=== PATIENT | female | born 1945 | race Caucasian/White ===

== ENCOUNTER 2018-10-01 21:40 | Inpatient (IN) | payer MEDICARE ==
[2018-10-01] MEDS ORDERED: Prevnar 13-Val Conj/PF 0.5 ML SYRINGE IM ONE (22:45)
[2018-10-01] MEDS ORDERED: Dextrose 5% in Water 1,000 ML IV PRN (23:28)
[2018-10-01] MEDS ORDERED: Dextrose 50% Abboject 50 ML SYRINGE IVP PRN (23:28)
[2018-10-01] MEDS ORDERED: HumaLOG 300 UNITS/3 ML VIAL SC PRN (23:28)
[2018-10-02] MEDS: traMADol HCl 50 MG TAB PO PRN ×3 (00:04→18:41)
[2018-10-02] MEDS: Melatonin 3 MG TAB PO PRN ×2 (00:04→21:53)
[2018-10-02] MEDS: Acetaminophen 500 MG TAB PO PRN ×2 (00:05→10:28)
[2018-10-02 05:15] LABS: #Basophils 0.1 thou/uL (0.0-0.2); #Eosinphils 0.2 thou/uL (0.0-0.7); #Monocytes 0.7 thou/uL (0.11-0.59); %Basophils 0.7 % (0.0-1.0); %Lymphocytes 12.5 % (21.0-51.0); %Monocytes 8.9 % (0.0-10.0); %Neutrophils 75.9 % (42.0-75.0); Hemoglobin 7.2 g/dL (12.0-16.0); Mean Corpuscular HGB CONC 31.8 g/dL (32.0-36.0); Mean Corpuscular Hemoglobin 27.9 pg (27.0-31.0); Mean Corpuscular Volume 87.7 fL (78.0-98.0); Mean Platelet Volume 5.6 fL (7.4-10.4); Platelet Count 618 thou/uL (130-400); RBC Distribution Width 13.8 % (11.5-14.5); Red Blood Cell (RBC) Count 2.56 mill/uL (4.20-5.40); White Blood Cell (WBC) Count 7.9 thou/uL (4.8-10.8)
[2018-10-02 05:36] LABS: ALT (SGPT) 15 U/L (8-55); AST (SGOT) 16 U/L (5-34); Albumin 2.8 g/dL (3.4-4.8); Alkaline Phosphatase 114 U/L (40-150); Anion Gap 12 mmol/L (10-20); BUN (Urea Nitrogen) 5 mg/dL (9.8-20.1); Bilirubin, Total 0.3 mg/dL (0.2-1.2); Calc. Creatinine Clearance 99 mL/min (70-130); Calcium 8.4 mg/dL (7.8-10.44); Carbon Dioxide 27 mmol/L (23-31); Chloride 102 mmol/L (98-107); Estimated GFR-MDRD Greater than 90; Globulin 2.5 g/dL (2.4-3.5); Glucose 131 mg/dL (80-115); Potassium 3.6 mmol/L (3.5-5.1); Protein, Total 5.3 g/dL (6.0-8.3); Sodium 137 mmol/L (136-145)
[2018-10-02] MEDS: Levothyroxine Sodium 75 MCG TAB PO SCH (05:56)
[2018-10-02] MEDS: metFORMIN 500 MG TAB PO SCH ×2 (09:01→16:57)
[2018-10-02] MEDS: Ramipril 5 MG CAP PO SCH (09:02)
[2018-10-02] MEDS: Multivitamin W/ Minerals 1 TAB PO SCH (09:02)
[2018-10-02] MEDS: Aspirin 81 mg Enteric Coated Tablet PO SCH (09:02)
[2018-10-02] MEDS: Potassium Citrate 10 MEQ TAB PO SCH (09:02)
[2018-10-02] MEDS: DULoxetine 30 MG CAP PO SCH (09:02)
[2018-10-02] MEDS: Senokot S 8.6-50 MG TAB PO SCH ×2 (09:03→21:55)
[2018-10-02] MEDS: Saccharomyces boulardii 250 MG CAP PO SCH ×2 (09:03→21:48)
[2018-10-02] MEDS ORDERED: Dextrose 50% Abboject 50 ML SYRINGE IVP PRN (12:19)
[2018-10-02] MEDS ORDERED: HumaLOG 300 UNITS/3 ML VIAL SC PRN (12:19)
[2018-10-02] MEDS ORDERED: Dextrose 5% in Water 1,000 ML IV PRN (12:19)
--- NOTE | 2018-10-02 14:08 | HP ---
BRIEF HISTORY: This is a very pleasant 72-year-old female, who recently underwent a colonoscopy by Dr. Beckham with installation of donor fecal material for recurrent Clostridium difficile infection. Apparently, she had a significant stricture at the rectosigmoid junction, where he had difficulty traversing it, but eventually was able to do it. He instilled 250 to 50 mL of donor stool. She did have significant amount of retained stool, which made visualizing poor. Unfortunately, she developed significant abdominal distention and mottling and had to be intubated and was noted to have a perforated bowel. Dr. Bustamante did laparotomy, colon resection, and colostomy. He did left segment ileal resection with anastomosis, resection of the left colon, mobilization of the splenic flexure, Haven procedure, right colectomy without anastomosis, open abdomen ABThera placement, and left subclavian central line placement. She has been improving gradually. She is off her antibiotics. She was felt to be significantly deconditioned and was felt to be a candidate for inpatient rehabilitation and transferred here. No further episodes of Clostridium difficile. Antigen and toxin have been negative. Currently, the patient is sitting up at the side of her bed and eating her lunch. She does have a wound VAC placed. She still has a poor appetite. She refuses any protein supplement or Ensure. She stated that she will eat ice cream. She does not want Dave. Her spouse is in the room. She also after discussing with the spouse wants to be a full code. No fever or chills. No nausea or vomiting. PAST MEDICAL HISTORY: 1. Diabetes mellitus, type 2. 2. Hypothyroidism. 3. Hypertension. 4. Dyslipidemia. 5. History of recurrent Clostridium difficile. 6. Anxiety and depression. 7. Diverticulosis. 8. Poor p.o. intake for the last few years and has had a 40-pound weight loss per spouse. PAST SURGICAL HISTORY: 1. Two lumbar spine surgeries. 2. Partial thyroidectomy. 3. Hysterectomy. 4. Appendectomy. 5. History of past colonoscopy. PSYCHOSOCIAL HISTORY: for 52 years this week. Denies any tobacco, alcohol, or recreational drug abuse. FAMILY HISTORY: Noncontributory to current admission. ALLERGIES: MEPERIDINE AND CHLORPROMAZINE. MEDICATIONS: She has been transferred here on the following medications: 1. Tylenol 1 g q.6 p.r.n. 2. Norvasc 10 mg daily. 3. Ecotrin 81 mg daily. 4. Lipitor 20 mg daily. 5. Cymbalta 30 mg daily. 6. Lovenox 40 mg subcu daily. 7. Neurontin 100 mg at bedtime. 8. Ibuprofen 600 mg q.6 p.r.n. 9. Sliding scale coverage with insulin. 10. Synthroid 75 mcg in the morning. 11. Melatonin 3 mg at bedtime. 12. Glucophage 500 mg b.i.d. 13. Toprol-XL 25 mg at bedtime. 14. Protonix 40 mg daily. 15. Citrucel daily as needed. 16. Potassium citrate 20 mEq daily. 17. Altace 10 mg daily. 18. Florastor 250 mg b.i.d. 19. Tramadol 50 mg q.6 p.r.n. 20. Senokot-S one tablet b.i.d. REVIEW OF SYSTEMS: CARDIOVASCULAR SYSTEM: Denies any chest pain, shortness of breath, palpitations, PND, orthopnea, or pedal edema. RESPIRATORY SYSTEM: Denies any chronic cough, expectoration, or pleuritic type chest pain. GASTROINTESTINAL SYSTEM: Still with poor appetite, but denies any nausea, vomiting, diarrhea, constipation, hematemesis, melena, or hematochezia. GENITOURINARY SYSTEM: Denies any frequency, urgency, dysuria, or hematuria. CENTRAL NERVOUS SYSTEM: Denies any focal numbness, weakness, or fainting spells. HEENT: No difficulty with speech, vision, hearing, or swallowing. SKIN: Denies any rash. PHYSICAL EXAMINATION: GENERAL: A very pleasant 72-year-old frail female, in no apparent distress. She responds appropriate to questions. She is alert, awake, and oriented x3. Her spouse is in the room. VITAL SIGNS: She is afebrile. Heart rate is 87, respirations 18, oxygen saturation 97% on room air, and blood pressure 128/58. HEENT: Normocephalic and atraumatic. Pupils equally reactive to light and accommodation. Extraocular muscles intact. NECK: No JVD, thyromegaly, cervical lymphadenopathy, or throat exudates. No carotid bruits. CARDIOVASCULAR SYSTEM: S1 and S2 plus. Rate and rhythm regular. RESPIRATORY SYSTEM: Normal vesicular breath sounds heard in all lung jordan. ABDOMEN: Soft and nontender. Wound VAC in place. Bowel sounds heard in all quadrants. EXTREMITIES: Without cyanosis or clubbing. Peripheral pulses are palpable. CENTRAL NERVOUS SYSTEM: AAO x3. Cranial nerves 2 through 12 grossly intact. Generalized weakness. LABORATORY DATA: Laboratory values done today shows a white count of 7.9 and H and H are 7.2 and 22.5. Sodium 137, potassium 3.6, BUN and creatinine are 5 and 1.46. Blood sugars are 127 and 157. Last hemoglobin on the was 8; before that, it was 8.4 on the 24 of September. IMPRESSION: 1. Bowel perforation with peritonitis requiring extensive surgery, placement of colostomy, and wound VAC placement for abdominal incision. 2. Diabetes mellitus, type 2. 3. Hypertension. 4. Dyslipidemia. 5. Hypothyroidism. 6. Anxiety and depression. 7. Poor p.o. intake with significant deconditioning. 8. Albumin of 2.8, shows severe protein calorie malnutrition. PLAN: 1. Continue current medications. 2. 1800 calorie heart healthy ADA diet. 3. Accu-Cheks with sliding scale coverage. 4. Monitor blood pressure and adjust medications as needed. 5. DVT prophylaxis-she is on Lovenox. 6. Wound VAC care. 7. Stress ulcer prophylaxis-she is on Protonix. 8. Decubitus precautions. 9. The patient refuses any protein supplements. She states she will eat ice cream. She is aware of the risks. 10. She wants to be a full code after discussing with her spouse. 11. Significant anemia, likely mostly due to blood loss, but nutrition may also be contributing. Recheck CBC and BMP on Thursday. May need blood transfusion. PT and OT eval and treat. 12. Encourage the patient to eat well. 13. Discussed with the patient and spouse in detail. All questions answered. Job ID: [id number] [facility]
[2018-10-02] MEDS: Amlodipine 10 MG TAB PO SCH (21:47)
[2018-10-02] MEDS: Atorvastatin Calcium 20 MG TAB PO SCH (21:47)
[2018-10-02] MEDS: Enoxaparin Sodium 40 MG/0.4 ML SYRINGE SC SCH (21:48)
[2018-10-02] MEDS: Gabapentin 100 MG CAP PO SCH (21:48)
[2018-10-02] MEDS: CITRUCEL PO SCH (21:53)
[2018-10-02] MEDS: HYDROcodone/Acetaminophen 5/325 mg Tablet PO PRN (21:53)
[2018-10-02] MEDS: Simethicone Chewable 80 MG TAB PO PRN (21:57)
[2018-10-03] MEDS: Levothyroxine Sodium 75 MCG TAB PO SCH (05:34)
[2018-10-03] MEDS: metFORMIN 500 MG TAB PO SCH ×2 (08:43→17:59)
[2018-10-03] MEDS: DULoxetine 30 MG CAP PO SCH (08:44)
[2018-10-03] MEDS: Aspirin 81 mg Enteric Coated Tablet PO SCH (08:44)
[2018-10-03] MEDS: Ramipril 5 MG CAP PO SCH (08:44)
[2018-10-03] MEDS: Multivitamin W/ Minerals 1 TAB PO SCH (08:44)
[2018-10-03] MEDS: Potassium Citrate 10 MEQ TAB PO SCH (08:44)
[2018-10-03] MEDS: Saccharomyces boulardii 250 MG CAP PO SCH ×2 (08:45→20:57)
[2018-10-03] MEDS: Senokot S 8.6-50 MG TAB PO SCH ×2 (08:45→21:00)
[2018-10-03] MEDS: Simethicone Chewable 80 MG TAB PO PRN ×2 (13:13→21:00)
--- NOTE | 2018-10-03 16:11 | PRG ---
DATE OF SERVICE: 10/03/2018 SUBJECTIVE: Ms. Schmitz is doing the same. Denies any complaints. She apparently is hardly eating anything. The only thing she ate was ice cream. We will get dietary to see her. She again reinforced the risks of not getting adequate nutrition. OBJECTIVE: VITAL SIGNS: She is afebrile, heart rate 81, respirations 20, oxygen saturation 95% on room air, and blood pressure 122/58. CARDIOVASCULAR SYSTEM: S1 and S2 plus. RESPIRATORY SYSTEM: Normal vesicular breath sounds. ABDOMEN: Soft, nontender. Bowel sounds heard in all quadrants. EXTREMITIES: Without cyanosis or clubbing. LABORATORY DATA: Blood sugars are 139, 172, 128, and 135. IMPRESSION: 1. Intestinal perforation, requiring significant surgery with placement of colostomy and incisional wound, requiring wound VAC placement. 2. Severe protein-calorie malnutrition. 3. Diabetes mellitus, type 2. 4. Hypothyroidism. 5. Hypertension. 6. Dyslipidemia. PLAN: 1. Continue nutritional support. 2. Dietary consult. 3. Wound VAC care. 4. DVT and stress ulcer prophylaxis. 5. Decubitus precautions. 6. Repeat stool for Clostridium difficile is pending that is per hospital protocol. 7. PT and OT eval and treat. 8. Discussed with the patient and nursing in detail. No family at bedside. Job ID: [id number]
[2018-10-03] MEDS: Amlodipine 10 MG TAB PO SCH (20:57)
[2018-10-03] MEDS: Gabapentin 100 MG CAP PO SCH (20:57)
[2018-10-03] MEDS: Enoxaparin Sodium 40 MG/0.4 ML SYRINGE SC SCH (20:57)
[2018-10-03] MEDS: Atorvastatin Calcium 20 MG TAB PO SCH (20:57)
[2018-10-03] MEDS: Melatonin 3 MG TAB PO PRN (20:58)
[2018-10-03] MEDS: HYDROcodone/Acetaminophen 5/325 mg Tablet PO PRN (20:58)
[2018-10-03] MEDS: CITRUCEL PO SCH (21:00)
[2018-10-04] MEDS: Levothyroxine Sodium 75 MCG TAB PO SCH (05:13)
[2018-10-04] MEDS: Potassium Citrate 10 MEQ TAB PO SCH (08:04)
[2018-10-04] MEDS: Senokot S 8.6-50 MG TAB PO SCH (08:05)
[2018-10-04] MEDS: Ramipril 5 MG CAP PO SCH (08:05)
[2018-10-04] MEDS: metFORMIN 500 MG TAB PO SCH ×2 (08:05→16:51)
[2018-10-04] MEDS: Aspirin 81 mg Enteric Coated Tablet PO SCH (08:06)
[2018-10-04] MEDS: Saccharomyces boulardii 250 MG CAP PO SCH ×2 (08:06→21:08)
[2018-10-04] MEDS: Multivitamin W/ Minerals 1 TAB PO SCH (08:06)
[2018-10-04] MEDS: DULoxetine 30 MG CAP PO SCH (08:06)
[2018-10-04] MEDS: Acetaminophen 500 MG TAB PO PRN (09:16)
[2018-10-04] MEDS ORDERED: Senokot S 8.6-50 MG TAB PO PRN (12:50)
[2018-10-04] MEDS ORDERED: PATIENT'S HOME MEDICATION PO PRN (12:50)
--- NOTE | 2018-10-04 13:40 | PRG ---
DATE OF SERVICE: 10/04/2018 SUBJECTIVE: Ms. Schmitz is doing well. She is up in the side of her bed, getting ready to eat lunch. Dietitian is going to see her today. She is on Citrucel and Senokot. I am going to change both to p.r.n. She denies any other questions or concerns. OBJECTIVE: VITAL SIGNS: She is afebrile. Heart rate is 93, respirations 18, oxygen saturation 96% on room air, and blood pressure 136/65. CARDIOVASCULAR SYSTEM: S1 and S2 plus. RESPIRATORY SYSTEM: Normal vesicular breath sounds. ABDOMEN: Soft and nontender. Bowel sounds heard in all quadrants. Wound VAC in place. EXTREMITIES: Without cyanosis or clubbing. CENTRAL NERVOUS SYSTEM: AAO x3. Cranial nerves 2 through 12 intact. Generalized weakness. LABORATORY VALUES: C. diff antigen and toxin are negative. IMPRESSION: 1. Intestinal perforation requiring extensive surgery, placement of colostomy and wound VAC for abdominal incision. 2. Significant deconditioning. 3. Severe protein-calorie malnutrition. 4. Diabetes mellitus, type 2. 5. Hypertension. 6. Dyslipidemia. 7. Hypothyroidism. 8. Anxiety and depression. 9. Resolved Clostridium difficile colitis. PLAN: 1. Continue current medications. 2. Nutritional support. 3. Dietary evaluation. 4. DVT prophylaxis with PlexiPulses. 5. Wound VAC care. 6. PT/OT eval and treat. 7. Routine laboratory values. 8. Discontinue Senokot and change Citrucel to p.r.n. 9. Discussed with the patient and nursing in detail and all questions answered. Job ID: [id number]
[2018-10-04] MEDS: Atorvastatin Calcium 20 MG TAB PO SCH (21:07)
[2018-10-04] MEDS: Amlodipine 10 MG TAB PO SCH (21:07)
[2018-10-04] MEDS: Melatonin 3 MG TAB PO PRN (21:08)
[2018-10-04] MEDS: Gabapentin 100 MG CAP PO SCH (21:08)
[2018-10-04] MEDS: HYDROcodone/Acetaminophen 5/325 mg Tablet PO PRN (21:08)
[2018-10-04] MEDS: Enoxaparin Sodium 40 MG/0.4 ML SYRINGE SC SCH (21:08)
[2018-10-04] MEDS: HumaLOG 300 UNITS/3 ML VIAL SC PRN (21:09)
[2018-10-04] MEDS: Simethicone Chewable 80 MG TAB PO PRN (21:15)
[2018-10-05] MEDS: Acetaminophen 500 MG TAB PO PRN (04:02)
[2018-10-05] MEDS: Levothyroxine Sodium 75 MCG TAB PO SCH (05:52)
[2018-10-05] MEDS: metFORMIN 500 MG TAB PO SCH ×2 (08:13→17:44)
[2018-10-05] MEDS: Potassium Citrate 10 MEQ TAB PO SCH (08:13)
[2018-10-05] MEDS: Multivitamin W/ Minerals 1 TAB PO SCH (09:13)
[2018-10-05] MEDS: Ramipril 5 MG CAP PO SCH (09:13)
[2018-10-05] MEDS: Aspirin 81 mg Enteric Coated Tablet PO SCH (09:14)
[2018-10-05] MEDS: DULoxetine 30 MG CAP PO SCH (09:14)
[2018-10-05] MEDS: Saccharomyces boulardii 250 MG CAP PO SCH ×2 (09:15→20:30)
[2018-10-05] MEDS: HumaLOG 300 UNITS/3 ML VIAL SC PRN (12:07)
--- NOTE | 2018-10-05 13:52 | PRG ---
DATE OF SERVICE: 10/05/2018 SUBJECTIVE: Ms. Schmitz is up in her chair and just finished her lunch. Dietitian has seen her a couple of times and trying to help the patient find foods that she likes, that she needs nutritional support. She has been participating with therapy and improving. Initially, she wanted to go home on Thursday and for therapy, she may meet the criteria, but now she states that feels she needs to stay here few more days. I advised her that it will depend upon how therapy feels and once she has reached maximum medical improvement, then they do not see any further improvement and she will have to be discharged. apparently cannot be here for case conference today. OBJECTIVE: VITAL SIGNS: She is afebrile. Heart rate 76, respirations 20, oxygen saturation 94% on room air, and blood pressure 124/60. CARDIOVASCULAR SYSTEM: S1 and S2 plus. RESPIRATORY SYSTEM: Normal vesicular breath sounds. ABDOMEN: Soft and nontender. Bowel sounds heard in all quadrants. Wound VAC in place. EXTREMITIES: Without cyanosis or clubbing. Peripheral pulses are palpable. CENTRAL NERVOUS SYSTEM: Grossly nonfocal. A and O x3 and improving deconditioning. IMPRESSION: 1. Colonic perforation requiring extensive surgery, placement of colostomy. 2. Resolving Clostridium difficile infection. 3. [id number] protein-calorie malnutrition. 4. Diabetes mellitus type 2. 5. Hypertension. 6. Dyslipidemia. 7. Deconditioning. 8. Anemia likely due to acute blood loss. 9. Diverticulosis. 10. Hypothyroidism. PLAN: 1. Continue nutritional support. 2. Wound VAC care. 3. DVT and stress ulcer prophylaxis. 4. Decubitus precautions. 5. Recheck laboratory values. 6. Physical therapy. 7. Discussed with the patient and nursing in detail and all questions answered. Job ID: [id number]
[2018-10-05] MEDS: Simethicone Chewable 80 MG TAB PO PRN ×2 (14:26→20:30)
[2018-10-05] MEDS: Gabapentin 100 MG CAP PO SCH (20:29)
[2018-10-05] MEDS: Atorvastatin Calcium 20 MG TAB PO SCH (20:29)
[2018-10-05] MEDS: Enoxaparin Sodium 40 MG/0.4 ML SYRINGE SC SCH (20:29)
[2018-10-05] MEDS: Amlodipine 10 MG TAB PO SCH (20:29)
[2018-10-05] MEDS: HYDROcodone/Acetaminophen 5/325 mg Tablet PO PRN (20:30)
[2018-10-05] MEDS: clonazePAM 0.5 MG TAB PO PRN (20:30)
[2018-10-06] MEDS: Levothyroxine Sodium 75 MCG TAB PO SCH (05:08)
[2018-10-06 05:12] LABS: #Basophils 0.1 thou/uL (0.0-0.2); #Eosinphils 0.2 thou/uL (0.0-0.7); #Monocytes 1.1 thou/uL (0.11-0.59); #Neutrophils 9.7 thou/uL (1.40-6.50); %Basophils 0.9 % (0.0-1.0); %Eosinophils 1.5 % (0.0-10.0); %Lymphocytes 8.5 % (21.0-51.0); %Monocytes 8.9 % (0.0-10.0); %Neutrophils 80.3 % (42.0-75.0); Hemoglobin 7.1 g/dL (12.0-16.0); Mean Corpuscular HGB CONC 32.1 g/dL (32.0-36.0); Mean Corpuscular Volume 87.1 fL (78.0-98.0); Mean Platelet Volume 5.6 fL (7.4-10.4); Platelet Count 526 thou/uL (130-400); Red Blood Cell (RBC) Count 2.53 mill/uL (4.20-5.40); White Blood Cell (WBC) Count 12.1 thou/uL (4.8-10.8)
[2018-10-06 05:30] LABS: Anion Gap 14 mmol/L (10-20); BUN (Urea Nitrogen) 6 mg/dL (9.8-20.1); Calc. Creatinine Clearance 102 mL/min (70-130); Calcium 8.4 mg/dL (7.8-10.44); Carbon Dioxide 26 mmol/L (23-31); Chloride 102 mmol/L (98-107); Estimated GFR-MDRD Greater than 90; Glucose 143 mg/dL (80-115); Potassium 3.9 mmol/L (3.5-5.1); Sodium 138 mmol/L (136-145)
[2018-10-06] MEDS: Potassium Citrate 10 MEQ TAB PO SCH ×2 (08:09→12:54)
[2018-10-06] MEDS: Aspirin 81 mg Enteric Coated Tablet PO SCH (08:13)
[2018-10-06] MEDS: metFORMIN 500 MG TAB PO SCH ×2 (08:13→17:16)
[2018-10-06] MEDS: Multivitamin W/ Minerals 1 TAB PO SCH (08:14)
[2018-10-06] MEDS: DULoxetine 30 MG CAP PO SCH (08:14)
[2018-10-06] MEDS: Ramipril 5 MG CAP PO SCH (08:14)
[2018-10-06] MEDS: Saccharomyces boulardii 250 MG CAP PO SCH ×2 (08:15→20:05)
[2018-10-06] MEDS: Acetaminophen 500 MG TAB PO PRN ×2 (08:19→18:08)
[2018-10-06] MEDS: HumaLOG 300 UNITS/3 ML VIAL SC PRN ×2 (11:48→20:11)
[2018-10-06] MEDS: traMADol HCl 50 MG TAB PO PRN (15:04)
[2018-10-06] MEDS: Gabapentin 100 MG CAP PO SCH (20:04)
[2018-10-06] MEDS: Atorvastatin Calcium 20 MG TAB PO SCH (20:04)
[2018-10-06] MEDS: Amlodipine 10 MG TAB PO SCH (20:04)
[2018-10-06] MEDS: Enoxaparin Sodium 40 MG/0.4 ML SYRINGE SC SCH (20:04)
[2018-10-06] MEDS: Simethicone Chewable 80 MG TAB PO PRN (20:05)
[2018-10-06] MEDS: clonazePAM 0.5 MG TAB PO PRN (20:05)
[2018-10-06] MEDS: HYDROcodone/Acetaminophen 5/325 mg Tablet PO PRN (20:06)
[2018-10-07] MEDS: traMADol HCl 50 MG TAB PO PRN (04:02)
[2018-10-07] MEDS: Acetaminophen 500 MG TAB PO PRN (04:03)
[2018-10-07] MEDS: Levothyroxine Sodium 75 MCG TAB PO SCH (05:41)
[2018-10-07] MEDS: Aspirin 81 mg Enteric Coated Tablet PO SCH (08:08)
[2018-10-07] MEDS: Potassium Citrate 10 MEQ TAB PO SCH (08:08)
[2018-10-07] MEDS: metFORMIN 500 MG TAB PO SCH ×2 (08:08→17:05)
[2018-10-07] MEDS: DULoxetine 30 MG CAP PO SCH (08:09)
[2018-10-07] MEDS: Multivitamin W/ Minerals 1 TAB PO SCH (08:09)
[2018-10-07] MEDS: Ramipril 5 MG CAP PO SCH (08:10)
[2018-10-07] MEDS: Saccharomyces boulardii 250 MG CAP PO SCH ×2 (08:10→20:18)
[2018-10-07] MEDS: Ibuprofen 200 MG TAB PO PRN (08:11)
--- NOTE | 2018-10-07 14:07 | PRG ---
DATE OF SERVICE: 10/07/2018 SUBJECTIVE: Ms. Schmitz is still not eating well. Her spouse is in the room. She is agreeable for me to starting Remeron as hopefully, it will help with both her depression and her appetite. They do want to go home early next week and therapy was agreeable when I talked to them earlier this week. They already have had [facility] and so we will consult Case Management to arrange for that. She does need prescriptions for hydrocodone and Klonopin and I will have to see if she is on my system in the office and if so, then I can send it electronically. Unfortunately, I do not have the new paper triplicate prescriptions, which is effective September 25 yet in the office. OBJECTIVE: VITAL SIGNS: She is afebrile, heart rate 92, respirations 16, oxygen saturation 95% on room air, blood pressure 114/55. CARDIOVASCULAR SYSTEM: S1 and S2 plus. RESPIRATORY SYSTEM: Normal vesicular breath sounds. ABDOMEN: Soft, nontender. Bowel sounds heard in all quadrants. EXTREMITIES: Without cyanosis or clubbing. CENTRAL NERVOUS SYSTEM: A and O x3. Cranial nerves 2 through 12 intact. Generalized weakness. Wound VAC in place. LABORATORY DATA: Laboratory values done yesterday shows a white count of 12.1, it was normal the day before; hemoglobin is stable at 7.1. Sodium 138, potassium 3.9, BUN and creatinine are 6 and 0.45. Blood sugars are 173, 127, 210, 146, and 160. IMPRESSION: 1. Intestinal perforation requiring extensive surgery, now placement of colostomy. 2. Diabetes mellitus type 2. 3. Hypertension. 4. Significant deconditioning. 5. Anemia likely due to acute blood loss. 6. Severe protein-calorie malnutrition. 7. Hypothyroidism. 8. Anxiety and depression. PLAN: 1. Add Remeron 15 mg daily. 2. Continue nutritional support. 3. Colostomy care. 4. Wound VAC care. 5. DVT and stress ulcer prophylaxis. 6. Decubitus precautions. 7. Discussed with family in detail. 8. Recheck BMP and CBC on Thursday. 9. Continue to encourage p.o. intake. Job ID: [id number]
[2018-10-07] MEDS: Atorvastatin Calcium 20 MG TAB PO SCH (20:19)
[2018-10-07] MEDS: Amlodipine 10 MG TAB PO SCH (20:19)
[2018-10-07] MEDS: Gabapentin 100 MG CAP PO SCH (20:19)
[2018-10-07] MEDS: clonazePAM 0.5 MG TAB PO PRN (20:19)
[2018-10-07] MEDS: Enoxaparin Sodium 40 MG/0.4 ML SYRINGE SC SCH (20:20)
[2018-10-07] MEDS: Mirtazapine 15 MG TAB PO SCH (20:20)
[2018-10-07] MEDS: HYDROcodone/Acetaminophen 5/325 mg Tablet PO PRN (20:21)
[2018-10-07] MEDS: HumaLOG 300 UNITS/3 ML VIAL SC PRN (20:22)
[2018-10-08] MEDS: Levothyroxine Sodium 75 MCG TAB PO SCH (05:53)
[2018-10-08] MEDS: Ramipril 5 MG CAP PO SCH (09:03)
[2018-10-08] MEDS: Saccharomyces boulardii 250 MG CAP PO SCH ×2 (09:04→20:28)
[2018-10-08] MEDS: HYDROcodone/Acetaminophen 5/325 mg Tablet PO PRN ×2 (09:04→20:28)
[2018-10-08] MEDS: Aspirin 81 mg Enteric Coated Tablet PO SCH (09:04)
[2018-10-08] MEDS: Multivitamin W/ Minerals 1 TAB PO SCH (09:04)
[2018-10-08] MEDS: DULoxetine 30 MG CAP PO SCH (09:04)
[2018-10-08] MEDS: metFORMIN 500 MG TAB PO SCH ×2 (09:04→17:06)
[2018-10-08 10:07] LABS: #Basophils 0.1 thou/uL (0.0-0.2); #Eosinphils 0.3 thou/uL (0.0-0.7); #Lymphocytes 0.8 thou/uL (1.20-3.40); #Monocytes 0.6 thou/uL (0.11-0.59); #Neutrophils 8.4 thou/uL (1.40-6.50); %Basophils 0.5 % (0.0-1.0); %Eosinophils 2.9 % (0.0-10.0); %Monocytes 5.7 % (0.0-10.0); Hemoglobin 6.9 g/dL (12.0-16.0); Mean Corpuscular HGB CONC 31.5 g/dL (32.0-36.0); Mean Corpuscular Hemoglobin 27.2 pg (27.0-31.0); Mean Corpuscular Volume 86.5 fL (78.0-98.0); Mean Platelet Volume 5.2 fL (7.4-10.4); Platelet Count 529 thou/uL (130-400); RBC Distribution Width 14.3 % (11.5-14.5); Red Blood Cell (RBC) Count 2.55 mill/uL (4.20-5.40); White Blood Cell (WBC) Count 10.1 thou/uL (4.8-10.8)
[2018-10-08] MEDS ORDERED: Sodium Chloride 0.9% 10 ML ONE (11:56)
[2018-10-08] MEDS ORDERED: Piperacillin/Tazobactam 3.375 GM in Sodium Chloride 0.9% 100 ML IVPB SCH (12:00)
[2018-10-08] MEDS ORDERED: Acetaminophen 500 MG TAB PO SCH (12:15)
[2018-10-08] MEDS ORDERED: diphenhydrAMINE 25 MG CAP PO SCH (12:15)
[2018-10-08] MEDS: HumaLOG 300 UNITS/3 ML VIAL SC PRN (12:46)
[2018-10-08] MEDS: Enoxaparin Sodium 40 MG/0.4 ML SYRINGE SC SCH (20:27)
[2018-10-08] MEDS: Amlodipine 10 MG TAB PO SCH (20:28)
[2018-10-08] MEDS: Mirtazapine 15 MG TAB PO SCH (20:28)
[2018-10-08] MEDS: clonazePAM 0.5 MG TAB PO PRN (20:28)
[2018-10-08] MEDS: Atorvastatin Calcium 20 MG TAB PO SCH (20:28)
[2018-10-08] MEDS: Gabapentin 100 MG CAP PO SCH (20:28)
[2018-10-09 05:13] LABS: #Basophils 0.1 thou/uL (0.0-0.2); #Eosinphils 0.5 thou/uL (0.0-0.7); #Lymphocytes 0.9 thou/uL (1.20-3.40); #Monocytes 0.8 thou/uL (0.11-0.59); #Neutrophils 6.3 thou/uL (1.40-6.50); %Basophils 1.4 % (0.0-1.0); %Eosinophils 6.3 % (0.0-10.0); %Lymphocytes 9.9 % (21.0-51.0); %Monocytes 8.8 % (0.0-10.0); %Neutrophils 73.5 % (42.0-75.0); Hemoglobin 8.6 g/dL (12.0-16.0); Mean Corpuscular HGB CONC 32.1 g/dL (32.0-36.0); Mean Corpuscular Hemoglobin 28.1 pg (27.0-31.0); Mean Corpuscular Volume 87.5 fL (78.0-98.0); Mean Platelet Volume 5.6 fL (7.4-10.4); Platelet Count 509 thou/uL (130-400); RBC Distribution Width 13.5 % (11.5-14.5); Red Blood Cell (RBC) Count 3.07 mill/uL (4.20-5.40); White Blood Cell (WBC) Count 8.5 thou/uL (4.8-10.8)
[2018-10-09 05:27] LABS: Anion Gap 13 mmol/L (10-20); BUN (Urea Nitrogen) 6 mg/dL (9.8-20.1); Calc. Creatinine Clearance 86 mL/min (70-130); Calcium 8.6 mg/dL (7.8-10.44); Carbon Dioxide 25 mmol/L (23-31); Chloride 103 mmol/L (98-107); Estimated GFR-MDRD Greater than 90; Glucose 130 mg/dL (80-115); Potassium 3.9 mmol/L (3.5-5.1); Sodium 137 mmol/L (136-145)
[2018-10-09] MEDS: Levothyroxine Sodium 75 MCG TAB PO SCH (06:09)
[2018-10-09] MEDS: Ramipril 5 MG CAP PO SCH (09:15)
[2018-10-09] MEDS: Saccharomyces boulardii 250 MG CAP PO SCH ×2 (09:15→20:24)
[2018-10-09] MEDS: Aspirin 81 mg Enteric Coated Tablet PO SCH (09:16)
[2018-10-09] MEDS: Multivitamin W/ Minerals 1 TAB PO SCH (09:16)
[2018-10-09] MEDS: DULoxetine 30 MG CAP PO SCH (09:16)
[2018-10-09] MEDS: metFORMIN 500 MG TAB PO SCH ×2 (09:16→16:49)
[2018-10-09] MEDS: Acetaminophen 500 MG TAB PO PRN (13:41)
[2018-10-09] MEDS: traMADol HCl 50 MG TAB PO PRN (13:41)
--- NOTE | 2018-10-09 14:20 | PRG ---
DATE OF SERVICE: 10/09/2018 SUBJECTIVE: Ms. Schmitz is doing well except for the fact that she is hardly eating anything. Her son is in the room as well as her spouse. Both were made aware of the importance of her eating and the role at place in her healing process. No fever or chills. She did tolerate her blood transfusion. She is now undergoing wet-to-dry dressing to her abdominal wound. Per instructions from Dr. Bustamante's office, I had texted Dr. Bustamante, and he recommended that we do not start her on empiric antibiotics given her history of recurrent Clostridium difficile unless she clinically shows signs of infection. The main reason for my question was Therapy called me and stated that she was having significant drainage, some of it purulent from the wound VAC site, and the wound seemed to be increasing in depth. He also recommended not treating the culture as well. Again only if clinically she is showing signs of infection, her white count is actually back to normal. No fevers. So, we will continue to hold off on antibiotics. OBJECTIVE: VITAL SIGNS: She is afebrile, T-max of 99.1 yesterday, pulse is 99, respirations 18, oxygen saturation 96% on room air, and blood pressure 121/58. CARDIOVASCULAR SYSTEM: S1 and S2 plus. RESPIRATORY SYSTEM: Normal vesicular breath sounds. ABDOMEN: Soft, nontender. Wet-to-dry dressing over her abdominal wound. EXTREMITIES: Without cyanosis or clubbing. CENTRAL NERVOUS SYSTEM: Awake and responsive. Generalized weakness. LABORATORY DATA: White count is 8.5, H and H are 8.6 and 26.9, those were 6.9 and 22 yesterday. Sodium 137, potassium 3.9, BUN and creatinine 6 and 0.53. Blood sugars are 103, 179, 130, and 174. IMPRESSION: 1. Colonic perforation, requiring extensive surgery including right and left hemicolectomy along with placement of colostomy and ileocolic anastomosis. 2. Diabetes mellitus, type 2. 3. Anemia, requiring blood transfusion. 4. Severe protein-calorie malnutrition. 5. Hypertension. 6. Dyslipidemia. 7. History of recurrent Clostridium difficile, status post fecal transplant. PLAN: 1. Continue wet-to-dry wound dressing. 2. Monitor CBC closely and vital signs. 3. Encourage p.o. in nutritional intake. 4. DVT and stress ulcer prophylaxis. 5. Decubitus precautions. 6. Continue therapy. Discussed with the patient and family in detail. All questions answered. Job ID: [id number]
[2018-10-09] MEDS: Simethicone Chewable 80 MG TAB PO PRN (16:48)
[2018-10-09] MEDS: clonazePAM 0.5 MG TAB PO PRN (20:24)
[2018-10-09] MEDS: Enoxaparin Sodium 40 MG/0.4 ML SYRINGE SC SCH (20:24)
[2018-10-09] MEDS: Amlodipine 10 MG TAB PO SCH (20:24)
[2018-10-09] MEDS: HYDROcodone/Acetaminophen 5/325 mg Tablet PO PRN (20:24)
[2018-10-09] MEDS: Mirtazapine 15 MG TAB PO SCH (20:25)
[2018-10-09] MEDS: Gabapentin 100 MG CAP PO SCH (20:25)
[2018-10-09] MEDS: Atorvastatin Calcium 20 MG TAB PO SCH (20:25)
[2018-10-10] MEDS: Levothyroxine Sodium 75 MCG TAB PO SCH (05:40)
[2018-10-10] MEDS: Multivitamin W/ Minerals 1 TAB PO SCH (08:40)
[2018-10-10] MEDS: Ramipril 5 MG CAP PO SCH (08:40)
[2018-10-10] MEDS: DULoxetine 30 MG CAP PO SCH (08:40)
[2018-10-10] MEDS: Saccharomyces boulardii 250 MG CAP PO SCH ×2 (08:40→20:07)
[2018-10-10] MEDS: Aspirin 81 mg Enteric Coated Tablet PO SCH (08:40)
[2018-10-10] MEDS: metFORMIN 500 MG TAB PO SCH ×2 (08:40→17:45)
[2018-10-10] MEDS: Acetaminophen 500 MG TAB PO PRN (10:56)
[2018-10-10] MEDS: traMADol HCl 50 MG TAB PO PRN (10:56)
[2018-10-10] MEDS: HumaLOG 300 UNITS/3 ML VIAL SC PRN (11:39)
[2018-10-10] MEDS: clonazePAM 0.5 MG TAB PO PRN (20:05)
[2018-10-10] MEDS: HYDROcodone/Acetaminophen 5/325 mg Tablet PO PRN (20:06)
[2018-10-10] MEDS: Mirtazapine 15 MG TAB PO SCH (20:07)
[2018-10-10] MEDS: Enoxaparin Sodium 40 MG/0.4 ML SYRINGE SC SCH (20:07)
[2018-10-10] MEDS: Gabapentin 100 MG CAP PO SCH (20:07)
[2018-10-10] MEDS: Atorvastatin Calcium 20 MG TAB PO SCH (20:07)
[2018-10-10] MEDS: Amlodipine 10 MG TAB PO SCH (20:07)
[2018-10-11 05:35] LABS: #Basophils 0.2 thou/uL (0.0-0.2); #Eosinphils 0.6 thou/uL (0.0-0.7); #Monocytes 0.9 thou/uL (0.11-0.59); #Neutrophils 6.3 thou/uL (1.40-6.50); %Eosinophils 7.1 % (0.0-10.0); %Lymphocytes 11.2 % (21.0-51.0); %Monocytes 10.2 % (0.0-10.0); %Neutrophils 69.5 % (42.0-75.0); Hemoglobin 9.1 g/dL (12.0-16.0); Mean Corpuscular HGB CONC 32.6 g/dL (32.0-36.0); Mean Corpuscular Hemoglobin 28.7 pg (27.0-31.0); Mean Platelet Volume 5.5 fL (7.4-10.4); Platelet Count 618 thou/uL (130-400); Red Blood Cell (RBC) Count 3.16 mill/uL (4.20-5.40); White Blood Cell (WBC) Count 9.1 thou/uL (4.8-10.8)
[2018-10-11 05:47] LABS: Anion Gap 15 mmol/L (10-20); BUN (Urea Nitrogen) 9 mg/dL (9.8-20.1); Calc. Creatinine Clearance 86 mL/min (70-130); Calcium 8.9 mg/dL (7.8-10.44); Carbon Dioxide 24 mmol/L (23-31); Chloride 105 mmol/L (98-107); Estimated GFR-MDRD Greater than 90; Glucose 138 mg/dL (80-115); Potassium 3.9 mmol/L (3.5-5.1); Sodium 140 mmol/L (136-145)
[2018-10-11] MEDS: Levothyroxine Sodium 75 MCG TAB PO SCH (06:20)
[2018-10-11] MEDS: Multivitamin W/ Minerals 1 TAB PO SCH (08:14)
[2018-10-11] MEDS: Saccharomyces boulardii 250 MG CAP PO SCH ×2 (08:14→20:16)
[2018-10-11] MEDS: Aspirin 81 mg Enteric Coated Tablet PO SCH (08:14)
[2018-10-11] MEDS: DULoxetine 30 MG CAP PO SCH (08:14)
[2018-10-11] MEDS: Ramipril 5 MG CAP PO SCH (08:14)
[2018-10-11] MEDS: metFORMIN 500 MG TAB PO SCH ×2 (08:14→16:19)
[2018-10-11] MEDS: Acetaminophen 500 MG TAB PO PRN (08:18)
[2018-10-11] MEDS: HYDROcodone/Acetaminophen 5/325 mg Tablet PO PRN (20:15)
[2018-10-11] MEDS: Mirtazapine 15 MG TAB PO SCH (20:16)
[2018-10-11] MEDS: clonazePAM 0.5 MG TAB PO PRN (20:16)
[2018-10-11] MEDS: Amlodipine 10 MG TAB PO SCH (20:16)
[2018-10-11] MEDS: Atorvastatin Calcium 20 MG TAB PO SCH (20:16)
[2018-10-11] MEDS: Gabapentin 100 MG CAP PO SCH (20:16)
[2018-10-11] MEDS: Enoxaparin Sodium 40 MG/0.4 ML SYRINGE SC SCH (20:16)
[2018-10-12] MEDS: Levothyroxine Sodium 75 MCG TAB PO SCH (06:11)
[2018-10-12] MEDS: Aspirin 81 mg Enteric Coated Tablet PO SCH (08:11)
[2018-10-12] MEDS: metFORMIN 500 MG TAB PO SCH ×2 (08:11→16:17)
[2018-10-12] MEDS: DULoxetine 30 MG CAP PO SCH (08:11)
[2018-10-12] MEDS: Multivitamin W/ Minerals 1 TAB PO SCH (08:11)
[2018-10-12] MEDS: Ramipril 5 MG CAP PO SCH (08:11)
[2018-10-12] MEDS: Saccharomyces boulardii 250 MG CAP PO SCH ×2 (08:12→20:30)
[2018-10-12] MEDS: Acetaminophen 500 MG TAB PO PRN ×2 (08:12→16:31)
--- NOTE | 2018-10-12 11:53 | PRG ---
DATE OF SERVICE: 10/11/2018 SUBJECTIVE: Ms. Schmitz is doing well. Denies any complaints. She is still having copious drainage from her inferior opening of the incision. It is purulent, but she is not having any abdominal pain. No fever or chills. Her white count remains normal. Wound Care is doing dressing as per recommendations from Dr. Chamberlain, who is covering for Dr. Bustamante. OBJECTIVE: VITAL SIGNS: She is afebrile. Heart rate is 90, respirations 18, oxygen saturation 95% on room air, and blood pressure 123/58. CARDIOVASCULAR SYSTEM: S1 and S2 plus. RESPIRATORY SYSTEM: Normal vesicular breath sounds. ABDOMEN: Soft and nontender. Bowel sounds heard in all quadrants. EXTREMITIES: Without cyanosis or clubbing. Colostomy site is healthy. Incision does have a couple of open areas. The inferior open area does have some slough. Mild skin irritation surrounding the incision, but no obvious signs of infection. IMPRESSION: 1. Colonic perforation requiring extensive abdominal surgery for peritonitis, washout and placement of colostomy. 2. Diabetes mellitus type 2. 3. Hypertension. 4. Dyslipidemia. 5. History of recurrent Clostridium difficile requiring fecal transplant and severe protein calorie malnutrition. PLAN: 1. Continue current medications. 2. Wound care. 3. Nutritional support. 4. Monitor clinically for any signs of infection. 5. Colostomy care. 6. Encourage p.o. intake. 7. Discussed with the patient and son in detail. All questions answered. Job ID: [id number]
--- NOTE | 2018-10-12 12:05 | PRG ---
DATE OF SERVICE: 10/12/2018 SUBJECTIVE: Ms. Schmitz is doing well. She is stating that her dressing is getting saturated and it is not lasting for the 12 hours. Discussed with nursing and with the wound care. Plan is to try to do the dressing every 8 hours as well as make some changes to and Wound Care has given instructions to nursing about using more absorbent pads and some barrier treatment to help protect the skin. We will see how she does. The wound still looks healthy with no obvious signs of infection. OBJECTIVE: VITAL SIGNS: She is afebrile. Heart rate 82, respirations 18, oxygen saturation 95% on room air, and blood pressure 131/60. CARDIOVASCULAR SYSTEM: S1 and S2 plus. RESPIRATORY SYSTEM: Normal vesicular breath sounds. ABDOMEN: Soft and nontender. Wound with dressing. EXTREMITIES: Without cyanosis or clubbing. Colostomy site is healthy. The dressing was removed and when the wound was examined, still the inferior open area does have some slough, but no obvious signs of infection. ABDOMEN: Soft and nontender. IMPRESSION: 1. Colonic perforation requiring extensive surgery placement of colostomy. 2. Diabetes mellitus type 2. 3. Hypertension. 4. Dyslipidemia. 5. Severe protein calorie malnutrition. 6. Recurrent Clostridium difficile requiring fecal transplant. PLAN: 1. Continue current medications. 2. Nutritional support. 3. DVT and stress ulcer prophylaxis. 4. Decubitus precautions. 5. Wound care and recheck CBC, BMP in the morning. Her blood sugars are stable at 106, 141, 124, and 141. Job ID: [id number]
[2018-10-12] MEDS: Amlodipine 10 MG TAB PO SCH (20:29)
[2018-10-12] MEDS: HYDROcodone/Acetaminophen 5/325 mg Tablet PO PRN (20:30)
[2018-10-12] MEDS: Atorvastatin Calcium 20 MG TAB PO SCH (20:30)
[2018-10-12] MEDS: Gabapentin 100 MG CAP PO SCH (20:30)
[2018-10-12] MEDS: clonazePAM 0.5 MG TAB PO PRN (20:30)
[2018-10-12] MEDS: Mirtazapine 15 MG TAB PO SCH (20:30)
[2018-10-12] MEDS: Enoxaparin Sodium 40 MG/0.4 ML SYRINGE SC SCH (20:32)
[2018-10-13] MEDS: Levothyroxine Sodium 75 MCG TAB PO SCH (05:13)
[2018-10-13 05:28] LABS: #Basophils 0.1 thou/uL (0.0-0.2); #Eosinphils 0.6 thou/uL (0.0-0.7); #Lymphocytes 1.6 thou/uL (1.20-3.40); #Monocytes 0.8 thou/uL (0.11-0.59); #Neutrophils 6.7 thou/uL (1.40-6.50); %Basophils 1.2 % (0.0-1.0); %Monocytes 7.8 % (0.0-10.0); %Neutrophils 68.9 % (42.0-75.0); Hemoglobin 9.4 g/dL (12.0-16.0); Mean Corpuscular HGB CONC 30.9 g/dL (32.0-36.0); Mean Corpuscular Hemoglobin 27.8 pg (27.0-31.0); Mean Corpuscular Volume 89.7 fL (78.0-98.0); Mean Platelet Volume 5.5 fL (7.4-10.4); Platelet Count 680 thou/uL (130-400); RBC Distribution Width 14.4 % (11.5-14.5); Red Blood Cell (RBC) Count 3.37 mill/uL (4.20-5.40); White Blood Cell (WBC) Count 9.7 thou/uL (4.8-10.8)
[2018-10-13 05:39] LABS: Anion Gap 14 mmol/L (10-20); BUN (Urea Nitrogen) 6 mg/dL (9.8-20.1); Calc. Creatinine Clearance 90 mL/min (70-130); Calcium 9.2 mg/dL (7.8-10.44); Carbon Dioxide 26 mmol/L (23-31); Chloride 107 mmol/L (98-107); Estimated GFR-MDRD Greater than 90; Glucose 123 mg/dL (80-115); Potassium 4.4 mmol/L (3.5-5.1); Sodium 143 mmol/L (136-145)
[2018-10-13] MEDS: metFORMIN 500 MG TAB PO SCH ×2 (08:34→17:32)
[2018-10-13] MEDS ORDERED: Iopamidol 370 76% 100 ML VIAL ONE (09:00)
[2018-10-13] MEDS: Ramipril 5 MG CAP PO SCH (09:34)
[2018-10-13] MEDS: DULoxetine 30 MG CAP PO SCH (09:35)
[2018-10-13] MEDS: Saccharomyces boulardii 250 MG CAP PO SCH ×2 (09:35→19:42)
[2018-10-13] MEDS: Aspirin 81 mg Enteric Coated Tablet PO SCH (09:35)
[2018-10-13] MEDS: Multivitamin W/ Minerals 1 TAB PO SCH (09:35)
--- NOTE | 2018-10-13 13:38 | PRG ---
DATE OF SERVICE: 10/13/2018 SUBJECTIVE: Ms. Schmitz is doing the same. Spoke with Wound Care this morning and they felt like below the mid abdominal wound and the lower abdominal wound are tunneling toward each other. They are also noticing the lower abdominal wound to be slightly increasing in size, checked with Dr. Chamberlain, who is covering for Dr. Bustamante and she is going to see her tomorrow. She also wants a CT of abdomen and pelvis with p.o. and IV contrast, which has been scheduled for this afternoon. She remains afebrile and her white count remains normal. She continues to tolerate p.o. intake. OBJECTIVE: VITAL SIGNS: She is afebrile. Heart rate 68, respirations 20, oxygen saturation on room air, and blood pressure 134/70. CARDIOVASCULAR SYSTEM: S1 and S2 plus. RESPIRATORY SYSTEM: Normal vesicular breath sounds. ABDOMEN: Soft and nontender. Bowel sounds heard in all quadrants. Abdominal incision shows the two open areas in the mid and the lower portion. Minimal skin irritation around the incision. No obvious signs of infection. EXTREMITIES: Without cyanosis or clubbing. CENTRAL NERVOUS SYSTEM: AAO x3. Cranial nerves 2 through 12 intact. Generalized weakness. LABORATORY VALUES: White count is 9.7, hemoglobin and hematocrit are 9.4 and 30.3, platelets 680. Sodium 143, potassium 4.4, BUN and creatinine of 6 and 0.51. Blood sugars are 141, 139, 183, and 123. IMPRESSION: 1. Colonic perforation requiring extensive surgery, colectomy and colostomy placement. 2. Abdominal incision with multiple open areas with possible tunneling. 3. Diabetes mellitus, type 2. 4. Hypertension. 5. Dyslipidemia. 6. Deconditioning. PLAN: 1. CT of abdomen and pelvis with p.o. and IV contrast. 2. Follow up with Dr. Chamberlain tomorrow. 3. Continue to hold off on antibiotics unless there are any obvious signs of infection. 4. Nutritional support with heart healthy, ADA diet. 5. Accu-Cheks with sliding scale coverage. 6. DVT prophylaxis. 7. Stress ulcer prophylaxis. 8. Routine laboratory values. 9. No family at bedside. 10. Discussed with the patient and nursing in detail. All questions answered. Job ID: [id number]
--- NOTE | 2018-10-13 15:59 | CT ---
Contrast-enhanced CT images abdomen and pelvis. Patient with history of colostomy nonhealing abdominal wound. Comparison made to previous CT from 07/25/2018. The lung bases demonstrate a small left-sided pleural effusion. The liver and spleen are unremarkable. The pancreas is unremarkable. The gallbladder unremarkable. Right and left intraperitoneal fluid collection seen. The right collection has three-dimensional susan urements of 3.7 x 4.4 x 6.9 cm and is inferior to the right hepatic lobe. A second left collection may be intra or may be retroperitoneal just anterior to the upper most margin of the iliacus this col lection has three-dimensional measurements of 5.6 x 3.6 x 6.4 cm. Both collections are concerning for intra-abdominal abscess. Anterior midline incision is present. To the left of this appears to be of tiny collection of fluid w hich communicates with the anterior abdominal incision and the left intra-abdominal collection described. IMPRESSION: 2 intra-abdominal collections most compatible with abscess. Surgical consultation recomme nded.
[2018-10-13] MEDS: Amlodipine 10 MG TAB PO SCH (19:40)
[2018-10-13] MEDS: Atorvastatin Calcium 20 MG TAB PO SCH (19:41)
[2018-10-13] MEDS: Mirtazapine 15 MG TAB PO SCH (19:41)
[2018-10-13] MEDS: Enoxaparin Sodium 40 MG/0.4 ML SYRINGE SC SCH (19:41)
[2018-10-13] MEDS: Gabapentin 100 MG CAP PO SCH (19:41)
[2018-10-13] MEDS: clonazePAM 0.5 MG TAB PO PRN (19:42)
[2018-10-13] MEDS: HYDROcodone/Acetaminophen 5/325 mg Tablet PO PRN (19:42)
[2018-10-13] MEDS: HumaLOG 300 UNITS/3 ML VIAL SC PRN (19:43)
[2018-10-14] MEDS ORDERED: Levothyroxine Sodium 75 MCG TAB ONE (05:08)
[2018-10-14] MEDS ORDERED: DULoxetine 30 MG CAP ONE (08:04)
[2018-10-14] MEDS ORDERED: Ramipril 5 MG CAP ONE (08:04)
[2018-10-14] MEDS ORDERED: Aspirin Chewable 81 MG TAB ONE (08:06)
[2018-10-14] MEDS ORDERED: Saccharomyces boulardii 250 MG CAP ONE (08:07)
[2018-10-14] MEDS ORDERED: metFORMIN 500 MG TAB ONE (08:08)
[2018-10-14] MEDS ORDERED: Multivitamin W/ Minerals 1 TAB ONE (08:10)
[2018-10-14] MEDS ORDERED: Acetaminophen 500 MG TAB ONE (08:11)
[2018-10-14] MEDS: metFORMIN 500 MG TAB PO SCH ×2 (08:41→18:27)
[2018-10-14] MEDS: DULoxetine 30 MG CAP PO SCH (10:47)
[2018-10-14] MEDS: Aspirin 81 mg Enteric Coated Tablet PO SCH (10:47)
[2018-10-14] MEDS: Saccharomyces boulardii 250 MG CAP PO SCH ×2 (10:48→20:19)
[2018-10-14] MEDS: Multivitamin W/ Minerals 1 TAB PO SCH (10:48)
[2018-10-14] MEDS: Ramipril 5 MG CAP PO SCH (10:48)
[2018-10-14] MEDS: HYDROcodone/Acetaminophen 5/325 mg Tablet PO PRN (19:37)
[2018-10-14] MEDS: Amlodipine 10 MG TAB PO SCH (20:19)
[2018-10-14] MEDS: Mirtazapine 15 MG TAB PO SCH (20:19)
[2018-10-14] MEDS: Gabapentin 100 MG CAP PO SCH (20:19)
[2018-10-14] MEDS: Atorvastatin Calcium 20 MG TAB PO SCH (20:19)
[2018-10-14] MEDS: Enoxaparin Sodium 40 MG/0.4 ML SYRINGE SC SCH (20:20)
[2018-10-14] MEDS: Melatonin 3 MG TAB PO PRN (20:27)
[2018-10-14] MEDS: clonazePAM 0.5 MG TAB PO PRN (20:27)
[2018-10-14] MEDS: traMADol HCl 50 MG TAB PO PRN (22:59)
[2018-10-15] MEDS: Ibuprofen 200 MG TAB PO PRN ×2 (02:10→11:15)
[2018-10-15] MEDS: Acetaminophen 500 MG TAB PO PRN (05:45)
[2018-10-15] MEDS: Levothyroxine Sodium 75 MCG TAB PO SCH ×2 (05:45→06:17)
[2018-10-15] MEDS: traMADol HCl 50 MG TAB PO PRN ×2 (05:45→16:21)
[2018-10-15] MEDS: DULoxetine 30 MG CAP PO SCH (08:26)
[2018-10-15] MEDS: metFORMIN 500 MG TAB PO SCH ×2 (08:26→16:21)
[2018-10-15] MEDS: Multivitamin W/ Minerals 1 TAB PO SCH (08:27)
[2018-10-15] MEDS: Ramipril 5 MG CAP PO SCH (08:28)
[2018-10-15] MEDS: Aspirin 81 mg Enteric Coated Tablet PO SCH (08:31)
[2018-10-15] MEDS: Saccharomyces boulardii 250 MG CAP PO SCH ×2 (08:32→20:13)
--- NOTE | 2018-10-15 12:57 | PRG ---
DATE OF SERVICE: 10/15/2018 SUBJECTIVE: Ms. Schmitz was seen by Dr. Chamberlain yesterday. CT scan shows 2 discrete abscesses, one of them was drained percutaneously. The other wound was unable to be done due to proximity to colostomy site. Dr. Chamberlain recommended wound VAC placement. Wound Care here had some concerns. I asked them to talk to Dr. Chamberlain directly, but apparently Dr. Bustamante is back and he did ensure them to place the wound VAC, which has now been placed. I gave instructions for them to do strict monitoring of the output from the drain q.shift and document it. She is doing well otherwise. Denies any fever or chills, tolerating her p.o. Colostomy site is working well. OBJECTIVE: VITAL SIGNS: She is afebrile, heart rate 70, respirations 18, oxygen saturation 97% on room air, blood pressure 109/55. CARDIOVASCULAR SYSTEM: S1 and S2 plus. RESPIRATORY SYSTEM: Normal vesicular breath sounds. ABDOMEN: Soft, nontender. Drain present in the right lumbar region. Colostomy is healthy. Wound VAC has been placed for midline incision. Bowel sounds heard in all quadrants. EXTREMITIES: Without cyanosis or clubbing. CENTRAL NERVOUS SYSTEM: AAO x3. Cranial nerves 2 through 12 intact. LABORATORY DATA: Blood sugars are 124, 213, 105, 143. IMPRESSION: 1. Colonic perforation, requiring surgery, placement of colostomy. 2. Intraabdominal abscesses, one of them has been percutaneously drained. 3. Wound VAC to abdominal incision. 4. Diabetes mellitus type 2. 5. Hypertension. 6. Dyslipidemia. 7. Deconditioning. 8. Severe protein-calorie malnutrition. PLAN: 1. Recheck laboratory values tomorrow. 2. Continue wound VAC per Dr. Bustamante's instructions. 3. Monitor drain output q.shift. 4. DVT and stress ulcer prophylaxis. 5. Nutritional support. 6. Routine laboratory values. 7. Monitor for any signs of infection clinically. 8. Accu-Cheks with sliding scale coverage. 9. Dr. Kessler on-call this weekend and Dr. Kessler or Dr. Sierra covering me next week. Job ID: [id number]
[2018-10-15] MEDS: HYDROcodone/Acetaminophen 5/325 mg Tablet PO PRN (20:00)
[2018-10-15] MEDS: Mirtazapine 15 MG TAB PO SCH (20:13)
[2018-10-15] MEDS: Amlodipine 10 MG TAB PO SCH (20:13)
[2018-10-15] MEDS: Gabapentin 100 MG CAP PO SCH (20:13)
[2018-10-15] MEDS: Atorvastatin Calcium 20 MG TAB PO SCH (20:13)
[2018-10-15] MEDS: Enoxaparin Sodium 40 MG/0.4 ML SYRINGE SC SCH (20:14)
[2018-10-15] MEDS: Melatonin 3 MG TAB PO PRN (20:35)
[2018-10-15] MEDS: clonazePAM 0.5 MG TAB PO PRN (20:35)
[2018-10-16 05:08] LABS: #Basophils 0.1 thou/uL (0.0-0.2); #Eosinphils 0.5 thou/uL (0.0-0.7); #Lymphocytes 1.8 thou/uL (1.20-3.40); #Monocytes 0.6 thou/uL (0.11-0.59); #Neutrophils 6.8 thou/uL (1.40-6.50); %Basophils 0.7 % (0.0-1.0); %Eosinophils 5.1 % (0.0-10.0); %Lymphocytes 18.2 % (21.0-51.0); %Neutrophils 69.9 % (42.0-75.0); Hemoglobin 8.5 g/dL (12.0-16.0); Mean Corpuscular HGB CONC 31.6 g/dL (32.0-36.0); Mean Corpuscular Volume 88.8 fL (78.0-98.0); Mean Platelet Volume 5.4 fL (7.4-10.4); Platelet Count 643 thou/uL (130-400); RBC Distribution Width 14.4 % (11.5-14.5); Red Blood Cell (RBC) Count 3.05 mill/uL (4.20-5.40); White Blood Cell (WBC) Count 9.7 thou/uL (4.8-10.8)
[2018-10-16 05:26] LABS: Anion Gap 12 mmol/L (10-20); BUN (Urea Nitrogen) 9 mg/dL (9.8-20.1); Calc. Creatinine Clearance 88 mL/min (70-130); Calcium 8.7 mg/dL (7.8-10.44); Carbon Dioxide 27 mmol/L (23-31); Chloride 105 mmol/L (98-107); Estimated GFR-MDRD Greater than 90; Glucose 111 mg/dL (80-115); Potassium 4.1 mmol/L (3.5-5.1); Sodium 140 mmol/L (136-145)
[2018-10-16] MEDS: Levothyroxine Sodium 75 MCG TAB PO SCH (05:40)
[2018-10-16] MEDS: Ibuprofen 200 MG TAB PO PRN (05:40)
[2018-10-16] MEDS: Aspirin 81 mg Enteric Coated Tablet PO SCH (08:16)
[2018-10-16] MEDS: metFORMIN 500 MG TAB PO SCH ×2 (08:16→17:14)
[2018-10-16] MEDS: DULoxetine 30 MG CAP PO SCH (08:16)
[2018-10-16] MEDS: Multivitamin W/ Minerals 1 TAB PO SCH (08:17)
[2018-10-16] MEDS: Ramipril 5 MG CAP PO SCH (08:17)
[2018-10-16] MEDS: Saccharomyces boulardii 250 MG CAP PO SCH ×2 (08:18→21:07)
[2018-10-16] MEDS: traMADol HCl 50 MG TAB PO PRN (12:46)
[2018-10-16] MEDS: HYDROcodone/Acetaminophen 5/325 mg Tablet PO PRN (19:35)
[2018-10-16] MEDS: Gabapentin 100 MG CAP PO SCH (21:07)
[2018-10-16] MEDS: Amlodipine 10 MG TAB PO SCH (21:07)
[2018-10-16] MEDS: Mirtazapine 15 MG TAB PO SCH (21:07)
[2018-10-16] MEDS: Atorvastatin Calcium 20 MG TAB PO SCH (21:07)
[2018-10-16] MEDS: Enoxaparin Sodium 40 MG/0.4 ML SYRINGE SC SCH (21:08)
[2018-10-16] MEDS: clonazePAM 0.5 MG TAB PO PRN (21:09)
[2018-10-16] MEDS: Melatonin 3 MG TAB PO PRN (21:09)
--- NOTE | 2018-10-16 22:09 | PRG ---
DATE OF SERVICE: 10/16/[address] Yaneth Bryant. SUBJECTIVE: The patient is an unfortunate 72-year-old white female, who has had a long history of Clostridium difficile, and subsequently had fecal transplantation with perforation and development of peritonitis. This is subsequently required colostomy placement and resection of large amounts of her colon, but with persistent finding of two abdominal abscesses, requiring wound VAC placement over the central incision for one, but the other abscess not being drained because of close proximity to colostomy. She is feeling well, however, with no fever, chills, or abdominal pain. Colostomy is working well, wound VAC is working well, and she is eating well. OBJECTIVE: VITAL SIGNS: Blood pressure of 119/58, temperature 98.3, pulse 80, respirations 18, O2 sats 95% on room air. LUNGS: Clear. CARDIAC: Regular rhythm. ABDOMEN: Soft with functioning colostomy and functioning wound VAC on the abdominal incision. The patient is cachectic, but does not appear to be significantly dehydrated. No decubitus. ASSESSMENT: 1. Resolving peritonitis, multiple abscesses from fecal perforation, colitis, status post significant partial colectomy. 2. Deconditioning and weight loss secondary to the above-mentioned multiple illnesses, improving now with increased strength and appetite. 3. Diabetes mellitus, type 2, controlled to goal. 4. Hypertension, controlled to goal. PLAN: Continue PT and OT. Continue Accu-Cheks to monitor and titrate and control diabetes. Continue DVT and stress ulcer prophylaxis. Continue wound VAC. Dr. Bustamante's instructions. Continue to monitor colostomy output. Review labs and therapy notes. Job ID: [id number]
[2018-10-17] MEDS: Ibuprofen 200 MG TAB PO PRN ×2 (05:58→15:54)
[2018-10-17] MEDS: Levothyroxine Sodium 75 MCG TAB PO SCH (05:58)
[2018-10-17] MEDS: DULoxetine 30 MG CAP PO SCH (08:14)
[2018-10-17] MEDS: Aspirin 81 mg Enteric Coated Tablet PO SCH (08:14)
[2018-10-17] MEDS: metFORMIN 500 MG TAB PO SCH ×2 (08:14→15:54)
[2018-10-17] MEDS: Ramipril 5 MG CAP PO SCH (08:15)
[2018-10-17] MEDS: Multivitamin W/ Minerals 1 TAB PO SCH (08:15)
[2018-10-17] MEDS: Saccharomyces boulardii 250 MG CAP PO SCH ×2 (08:16→21:04)
[2018-10-17] MEDS: Melatonin 3 MG TAB PO PRN (21:01)
[2018-10-17] MEDS: clonazePAM 0.5 MG TAB PO PRN (21:01)
[2018-10-17] MEDS: HYDROcodone/Acetaminophen 5/325 mg Tablet PO PRN (21:01)
[2018-10-17] MEDS: Enoxaparin Sodium 40 MG/0.4 ML SYRINGE SC SCH (21:04)
[2018-10-17] MEDS: Atorvastatin Calcium 20 MG TAB PO SCH (21:04)
[2018-10-17] MEDS: Mirtazapine 15 MG TAB PO SCH (21:04)
[2018-10-17] MEDS: Amlodipine 10 MG TAB PO SCH (21:04)
[2018-10-17] MEDS: Gabapentin 100 MG CAP PO SCH (21:04)
[2018-10-18] MEDS: Levothyroxine Sodium 75 MCG TAB PO SCH (05:46)
[2018-10-18] MEDS: Ibuprofen 200 MG TAB PO PRN (05:46)
[2018-10-18] MEDS: Multivitamin W/ Minerals 1 TAB PO SCH (09:13)
[2018-10-18] MEDS: DULoxetine 30 MG CAP PO SCH (09:13)
[2018-10-18] MEDS: Aspirin 81 mg Enteric Coated Tablet PO SCH (09:13)
[2018-10-18] MEDS: Ramipril 5 MG CAP PO SCH (09:13)
[2018-10-18] MEDS: metFORMIN 500 MG TAB PO SCH ×2 (09:13→17:48)
[2018-10-18] MEDS: Saccharomyces boulardii 250 MG CAP PO SCH ×2 (09:13→20:10)
--- NOTE | 2018-10-18 09:57 | PRG ---
DATE OF SERVICE: 10/17/2018 SUBJECTIVE: The patient feels well, increasing strength, but is still not eating well. The patient is status post peritonitis from a perforated colon with multiple abscesses and now has a wound VAC in place as well as colostomy, appears to be functioning well with decreasing pain and tenderness with severe weakness. OBJECTIVE: ABDOMEN: To be soft and nontender. LUNGS: Clear. CARDIAC: Showed regular rhythm. VITAL SIGNS: Show blood pressure of 122/60, temperature is 98, pulse 94, respirations 18, O2 sats 97% on room air. SKIN/EXTREMITIES: Show a markedly decreased skin turgor. ASSESSMENT: 1. Resolving perforated colon, multiple abscesses with wound VAC in place and functioning colostomy with minimal drainage. 2. Type 2 diabetes, controlled to goal. 3. Severe deconditioning, working with Physical Therapy. 4. Severe malnutrition, stress need to increase oral intake. PLAN: 1. Continue PT/OT. 2. Continue to monitor wound VAC and colostomy output. 3. Continue to stress oral intake. 4. Repeat labs in the a.m. Job ID: [id number]
[2018-10-18] MEDS: HumaLOG 300 UNITS/3 ML VIAL SC PRN (12:55)
[2018-10-18] MEDS: HYDROcodone/Acetaminophen 5/325 mg Tablet PO PRN (20:07)
[2018-10-18] MEDS: Gabapentin 100 MG CAP PO SCH (20:10)
[2018-10-18] MEDS: Amlodipine 10 MG TAB PO SCH (20:10)
[2018-10-18] MEDS: Mirtazapine 15 MG TAB PO SCH (20:10)
[2018-10-18] MEDS: Atorvastatin Calcium 20 MG TAB PO SCH (20:10)
[2018-10-18] MEDS: Enoxaparin Sodium 40 MG/0.4 ML SYRINGE SC SCH (20:12)
[2018-10-18] MEDS: clonazePAM 0.5 MG TAB PO PRN (21:13)
[2018-10-18] MEDS: Melatonin 3 MG TAB PO PRN (21:13)
[2018-10-19] MEDS: Levothyroxine Sodium 75 MCG TAB PO SCH ×2 (06:11→06:12)
[2018-10-19] MEDS: Aspirin 81 mg Enteric Coated Tablet PO SCH (09:13)
[2018-10-19] MEDS: Ramipril 5 MG CAP PO SCH (09:13)
[2018-10-19] MEDS: metFORMIN 500 MG TAB PO SCH ×2 (09:14→18:03)
[2018-10-19] MEDS: Multivitamin W/ Minerals 1 TAB PO SCH (09:14)
[2018-10-19] MEDS: Saccharomyces boulardii 250 MG CAP PO SCH ×2 (09:14→20:45)
[2018-10-19] MEDS: DULoxetine 30 MG CAP PO SCH (09:14)
--- NOTE | 2018-10-19 18:22 | PRG ---
DATE OF SERVICE: 10/18/2018 SUBJECTIVE: The patient feels well. States she is eating well and feels she is getting stronger, and cooperating with physical therapy. The patient has a history of resolving perforated colon with multiple abscesses with wound VAC in place and functioning colostomy in place with minimal drainage from the wounds. Monitor at this time with 5 to 20 mL with one reading of 400 mL, which I feel maybe an error. LABORATORY DATA: Laboratory showed a white count of 9700, hematocrit 27, hemoglobin 8.5. Accu-Cheks ranging from 123 to 188. Sodium 140, potassium 4.1, chloride 105, bicarb 27, BUN 9, creatinine 0.52. ASSESSMENT: 1. Resolving colonic perforation with wound VAC in place as well as colostomy with improving minimal drainage except for one reading which maybe an error. 2. Type 2 diabetes, controlled to goal. 3. Severe deconditioning, improving daily. 4. Severe malnutrition. We will stress need to increase intake and supplement. PLAN: 1. Continue PT and OT. 2. Continue to monitor wound VAC and colostomy output. 3. Continue to stress oral intake and nutritional intake. Job ID: [id number]
[2018-10-19] MEDS: Amlodipine 10 MG TAB PO SCH (20:44)
[2018-10-19] MEDS: Mirtazapine 15 MG TAB PO SCH (20:45)
[2018-10-19] MEDS: Enoxaparin Sodium 40 MG/0.4 ML SYRINGE SC SCH (20:45)
[2018-10-19] MEDS: clonazePAM 0.5 MG TAB PO PRN (20:45)
[2018-10-19] MEDS: Atorvastatin Calcium 20 MG TAB PO SCH (20:45)
[2018-10-19] MEDS: Gabapentin 100 MG CAP PO SCH (20:45)
[2018-10-19] MEDS: Melatonin 3 MG TAB PO PRN (20:46)
[2018-10-19] MEDS: HumaLOG 300 UNITS/3 ML VIAL SC PRN (20:47)
[2018-10-19] MEDS: HYDROcodone/Acetaminophen 5/325 mg Tablet PO PRN (20:49)
[2018-10-20] MEDS: Levothyroxine Sodium 75 MCG TAB PO SCH (05:33)
--- NOTE | 2018-10-20 07:14 | PRG ---
DATE OF SERVICE: 10/19/2018 SUBJECTIVE: The patient is sitting up in chair, visiting with , feels and looks much better with increased strength. Has eaten some outside food, is still having some drainage from her colostomy, but it is decreasing. Does smell foul drainage from the wound VAC. OBJECTIVE: VITAL SIGNS: Showed her to have temperature 98.6, pulse 106, respirations 18, O2 saturations 97% on room air, blood pressure 139/63. Accu-Cheks stable, 123-188. ABDOMEN: Soft and nontender. SKIN AND EXTREMITIES: Show decreased skin turgor. Physical therapy states the patient is cooperating well. Walk 460 feet and 100 feet with a rolling walker. The patient is due to see surgeon this week. ASSESSMENT: 1. Resolving colonic perforation with wound VAC in place with decreasing drainage. 2. Persistent abscess near colostomy, uncertain of therapy in the future and we will discuss with surgeon this week. 3. Type 2 diabetes, controlled to goal. 4. Malnutrition, improving with increased intake. 5. Severe deconditioning, improving daily, and walking well with therapy. PLAN: 1. Continue PT, OT. 2. Continue to monitor oral intake and stress nutritional input. 3. Continue to monitor wound VAC and colostomy output. 4. Follow up with surgeon this week. Job ID: [id number]
[2018-10-20] MEDS: metFORMIN 500 MG TAB PO SCH ×2 (08:07→17:13)
[2018-10-20] MEDS: DULoxetine 30 MG CAP PO SCH (08:08)
[2018-10-20] MEDS: Aspirin 81 mg Enteric Coated Tablet PO SCH (08:08)
[2018-10-20] MEDS: Ramipril 5 MG CAP PO SCH (08:08)
[2018-10-20] MEDS: Multivitamin W/ Minerals 1 TAB PO SCH (08:08)
[2018-10-20] MEDS: Saccharomyces boulardii 250 MG CAP PO SCH ×2 (08:09→20:43)
[2018-10-20] MEDS: Ibuprofen 200 MG TAB PO PRN (08:09)
[2018-10-20] MEDS: Enoxaparin Sodium 40 MG/0.4 ML SYRINGE SC SCH (20:42)
[2018-10-20] MEDS: Gabapentin 100 MG CAP PO SCH (20:42)
[2018-10-20] MEDS: Atorvastatin Calcium 20 MG TAB PO SCH (20:42)
[2018-10-20] MEDS: Melatonin 3 MG TAB PO PRN (20:42)
[2018-10-20] MEDS: Amlodipine 10 MG TAB PO SCH (20:42)
[2018-10-20] MEDS: Mirtazapine 15 MG TAB PO SCH (20:43)
[2018-10-20] MEDS: clonazePAM 0.5 MG TAB PO PRN (20:43)
[2018-10-20] MEDS: HYDROcodone/Acetaminophen 5/325 mg Tablet PO PRN (20:43)
--- NOTE | 2018-10-20 22:18 | PRG ---
DATE OF SERVICE: 10/20/2018 SUBJECTIVE: The patient is feeling well, ambulating in the bathroom safely and maintaining ADLs. She is eating somewhat better and is feeling stronger. She is having decreasing drainage from her wound VAC and is scheduled to see her surgeon tomorrow. OBJECTIVE: VITAL SIGNS: Temperature is 98.4, pulse 97, respirations 18, O2 sats 99% on room air, and blood pressure 123/58. LUNGS: Clear. CARDIAC: Showed regular rhythm. ABDOMEN: Shows wound VAC with decreasing output fistula. Colostomy is stable. ASSESSMENT: 1. Resolving colonic perforation with wound VAC in place and decreasing drainage. 2. Persistent abscess near colostomy and we will discuss with surgeon tomorrow. 3. Type 2 diabetes, controlled to goal. 4. Malnutrition, improving with increasing appetite. 5. Deconditioning, improving. PLAN: 1. Continue PT/OT. 2. Continue to monitor oral intake and stress nutritional input. 3. Continue to monitor wound VAC and colostomy output. 4. Follow up with surgeon tomorrow. Job ID: [id number]
[2018-10-21] MEDS: traMADol HCl 50 MG TAB PO PRN (00:01)
[2018-10-21] MEDS: Levothyroxine Sodium 75 MCG TAB PO SCH (05:53)
[2018-10-21] MEDS: metFORMIN 500 MG TAB PO SCH ×2 (08:17→15:31)
[2018-10-21] MEDS: DULoxetine 30 MG CAP PO SCH (08:17)
[2018-10-21] MEDS: Multivitamin W/ Minerals 1 TAB PO SCH (08:17)
[2018-10-21] MEDS: Aspirin 81 mg Enteric Coated Tablet PO SCH (08:17)
[2018-10-21] MEDS: Ramipril 5 MG CAP PO SCH (08:18)
[2018-10-21] MEDS: Saccharomyces boulardii 250 MG CAP PO SCH ×2 (08:19→20:39)
[2018-10-21] MEDS: Ibuprofen 200 MG TAB PO PRN ×2 (08:19→17:10)
[2018-10-21] MEDS ORDERED: Iopamidol 370 76% 50 ML VIAL FS ONE (09:00)
[2018-10-21] MEDS ORDERED: Iopamidol 370 76% 100 ML VIAL ONE (09:00)
[2018-10-21] MEDS ORDERED: Sodium Chloride 0.9% 20 ML ONE (11:52)
[2018-10-21 12:34] LABS: Anion Gap 16 mmol/L (10-20); BUN (Urea Nitrogen) 11 mg/dL (9.8-20.1); Calc. Creatinine Clearance 82 mL/min (70-130); Calcium 9.1 mg/dL (7.8-10.44); Carbon Dioxide 26 mmol/L (23-31); Chloride 101 mmol/L (98-107); Estimated GFR-MDRD Greater than 90; Glucose 90 mg/dL (80-115); Potassium 4.5 mmol/L (3.5-5.1); Sodium 138 mmol/L (136-145)
--- NOTE | 2018-10-21 15:58 | CT ---
CT OF ABDOMEN AND PELVIS PERFORMED WITH CONTRAST ENHANCEMENT: HISTORY: Followup of abdominal abscesses. COMPARISON: 10/13/2018 study. FINDINGS: There is a mild left-sided pleural effusion again noted with left lower lobe atelectatic change. The liver shows a slightly multiloculated small fluid density collection along the dome of the liver along the liver capsule measuring approximately 2 cm in maximum dimension. The spleen and pancreas regions appear unremarkable. The gallbladder is also unremarkable. Right and left adrenal glands and right and left kidneys show no evidence of obstruction. A right-si ded pigtail catheter is now present and has almost completely drained the right-sided abscess collect ion as compared to the 10/13/2018 study with only some minimal residual fluid in this area tracking carpio periorly to a subhepatic location. On the left side, there has also been interval reduction of the abscess collection. A small anterior collection is seen on axial image 44 is less than a centimeter in thickness. The dimensions of the left lower quadrant collection which is near the level of the ostomy have decreased to 2.4 x 3.4 x 4. 4 cm in size as compared to 3.6 x 5.6 x 6.4 cm. There is trace free fluid within the pelvis. There is fat stranding noted along the left paracolic gutter and within the pelvis. There are marked arthritic changes of the spine and scoliosis. IMPRESSION: 1. Right-sided drainage catheter. There is almost complete drainage of the fluid collection on the right side as compared to the prior examination. 2. Interval reduction in the left-sided abscess collection as described above. 3. Small fluid density subhepatic collection along the dome of the liver is stable as compared to prior exam. This could represent a tiny subhepatic hematoma or a tiny abscess collection. POS: TPC
[2018-10-21] MEDS: HumaLOG 300 UNITS/3 ML VIAL SC PRN ×2 (17:10→20:45)
[2018-10-21] MEDS: Mirtazapine 15 MG TAB PO SCH (20:39)
[2018-10-21] MEDS: diphenhydrAMINE 25 MG CAP PO SCH (20:39)
[2018-10-21] MEDS: Atorvastatin Calcium 20 MG TAB PO SCH (20:39)
[2018-10-21] MEDS: Melatonin 3 MG TAB PO PRN (20:39)
[2018-10-21] MEDS: Amlodipine 10 MG TAB PO SCH (20:39)
[2018-10-21] MEDS: Gabapentin 100 MG CAP PO SCH (20:40)
[2018-10-21] MEDS: Acetaminophen 500 MG TAB PO SCH (20:40)
[2018-10-21] MEDS: Enoxaparin Sodium 40 MG/0.4 ML SYRINGE SC SCH (20:44)
[2018-10-22] MEDS: Levothyroxine Sodium 75 MCG TAB PO SCH (05:39)
--- NOTE | 2018-10-22 07:56 | PRG ---
DATE OF SERVICE: 10/21/2018 SUBJECTIVE: The patient feels much better today. Has had CT scan. Has been seen by her surgeon and has had the drain removed from her wound VAC and her wound VAC removed. CT has shown no evidence of obstruction and almost complete drainage of the right-sided abscess collection and markedly decreased improvement in the left-sided abscess. She feels much better, somewhat anxious, but stronger. She is working with physical therapy and sleeping well. Walking with a rolling walker, has been independent in her transfers and in her room. OBJECTIVE: VITAL SIGNS: Showed to have temperature 97.6, pulse 87, respirations 18, O2 saturations 97% on room air, and blood pressure is 111/53. ASSESSMENT: 1. Resolving intraabdominal abscesses, status post colonic perforation with wound VAC removed at this time and decreasing size on CT scan. 2. Type 2 diabetes, controlled to goal. 3. Malnutrition, improving daily. 4. Deconditioning improving daily as the patient is independent in the room. PLAN: I discussed physical therapy progress with PT. Continue to monitor oral intake, stress nutritional input. Continue to monitor colostomy output and signs and symptoms of increasing abdominal pain or tenderness or drainage. Job ID: [id number]
[2018-10-22] MEDS: Ramipril 5 MG CAP PO SCH (08:38)
[2018-10-22] MEDS: DULoxetine 30 MG CAP PO SCH (08:39)
[2018-10-22] MEDS: Multivitamin W/ Minerals 1 TAB PO SCH (08:39)
[2018-10-22] MEDS: Aspirin 81 mg Enteric Coated Tablet PO SCH (08:39)
[2018-10-22] MEDS: Saccharomyces boulardii 250 MG CAP PO SCH ×2 (08:39→20:41)
[2018-10-22] MEDS: HumaLOG 300 UNITS/3 ML VIAL SC PRN ×2 (17:18→20:47)
[2018-10-22] MEDS: Mirtazapine 15 MG TAB PO SCH (20:40)
[2018-10-22] MEDS: Gabapentin 100 MG CAP PO SCH (20:41)
[2018-10-22] MEDS: Atorvastatin Calcium 20 MG TAB PO SCH (20:41)
[2018-10-22] MEDS: Amlodipine 10 MG TAB PO SCH (20:41)
[2018-10-22] MEDS: Acetaminophen 500 MG TAB PO SCH (20:41)
[2018-10-22] MEDS: Enoxaparin Sodium 40 MG/0.4 ML SYRINGE SC SCH (20:42)
[2018-10-22] MEDS: diphenhydrAMINE 25 MG CAP PO SCH (20:42)
[2018-10-23] MEDS: Levothyroxine Sodium 75 MCG TAB PO SCH (05:29)
[2018-10-23 07:11] LABS: Bilirubin Negative (Negative); Blood, Urine Small (Negative); Clarity Cloudy (Clear); Glucose, Urine (Dipstick) Negative (Negative); Leukocyte Large (Negative); Nitrite Positive (Negative); Protein, Urine (Dipstick) 30 mg/dL (Neg-Trace); Urobilinogen 0.2 mg/dL (0.2-1.0)
[2018-10-23 07:15] LABS: Bacteria/HPF 2+ HPF (None Seen); Squamous Epithelial None Seen HPF (0-3)
[2018-10-23] MEDS: Multivitamin W/ Minerals 1 TAB PO SCH (08:27)
[2018-10-23] MEDS: DULoxetine 30 MG CAP PO SCH (08:27)
[2018-10-23] MEDS: Aspirin 81 mg Enteric Coated Tablet PO SCH (08:28)
[2018-10-23] MEDS: Saccharomyces boulardii 250 MG CAP PO SCH ×2 (08:28→21:50)
[2018-10-23] MEDS: Ramipril 5 MG CAP PO SCH (08:28)
--- NOTE | 2018-10-23 09:35 | PRG ---
DATE OF SERVICE: 10/23/2018 SUBJECTIVE: Ms. Schmitz is a very pleasant 72-year-old white female, who had a colonoscopy by Dr. Beckham to donate fecal materal for her recurrent C. diff. She had significant stricture and unfortunately had a perforation. She was taken to surgical suite, where she had a colon resection and colostomy. Eventually, she was stabilized and transferred to [facility] for physical therapy and occupational therapy and continuation of her wound VAC. Her recent CT of the abdomen and pelvis revealed right-sided drainage catheter with almost complete drainage of the fluid collection on the right side as compared to prior exam, interval reduction of the left side abscess collection, and a small density subhepatic collection along the dome of the liver, stable. OBJECTIVE: VITAL SIGNS: Today revealed blood pressure of 118/56, pulse 79 to 101, respirations 18 to 20, O2 saturation 95% to 100% on room air, and T-max 98.6. GENERAL: This is a well-developed, well-nourished, thin white female, in no apparent distress at this time. HEENT: Reveals normocephalic and nontraumatic cranium. Pupils are equal, round, and reactive. Extraocular movements are intact. Nose and throat are slightly dry. NECK: Supple without masses, nodes, or bruits. CHEST: Clear to auscultation. No rales, rhonchi, or wheezes are heard. HEART: Reveals a regular rate and rhythm without murmurs, gallops, or rubs. ABDOMEN: Soft and nontender. Wound VAC is removed. GENITOURINARY: Deferred. EXTREMITIES: Revealed no clubbing, cyanosis, or edema. ASSESSMENT: 1. Intraabdominal abscess, status post colonic perforation with decreasing abscesses that were drained. 2. Type 2 diabetes. 3. History of malnutrition, although the patient states her appetite is getting better. 4. Generalized weakness with deconditioning. PLAN: 1. Continue present antibiotics. 2. Continue to monitor the patient's colostomy. 3. Monitor the patient for abdominal pain, which wax and wane. 4. Monitor the patient's drainage. 5. Monitor the patient's colostomy. 6. Stress ulcer prophylaxis. 7. Decubitus precautions and DVT prophylaxis per Primary Service. 8. Physical Therapy and Occupational Therapy. Job ID: [id number]
[2018-10-23] MEDS: Ibuprofen 200 MG TAB PO PRN (11:46)
[2018-10-23] MEDS: HumaLOG 300 UNITS/3 ML VIAL SC PRN ×2 (11:46→16:48)
--- NOTE | 2018-10-23 14:55 | PRG ---
DATE OF SERVICE: 10/22/[address] Yaneth Bryant. SUBJECTIVE: The patient feels much better, eating better, appears to be getting stronger. She is very pleased that her wound VAC has been removed and appears to be minimal drainage from the healing abdominal wound. Her colostomy is functioning well, and she is maintaining ADLs in her own. OBJECTIVE: VITAL SIGNS: Show her blood pressure is 114/57, temperature is 98, pulse 84, respirations 18, O2 saturations 94% on room air. LUNGS: Clear. CARDIAC: Showed regular rhythm. ABDOMEN: Soft and nontender with a clean abdominal wound with minimal drainage from lower incision and no abdominal tenderness. ASSESSMENT: 1. Resolving peritonitis with two separate abscesses, status post colonic perforation with wound VAC removed and no further antibiotics. 2. Type 2 diabetes, controlled to goal. 3. Malnutrition, improving daily. 4. Weakness, improving daily. PLAN: 1. Continue PT/OT, continue Accu-Cheks. 2. Monitor and titrate and control diabetes. 3. Continue to monitor oral hydration. 4. Continue to monitor for recurrent infection off antibiotics. Dr. Sierra to cover for Dr. Atkinson this weekend. Job ID: [id number]
[2018-10-23] MEDS: metFORMIN 500 MG TAB PO SCH (16:16)
[2018-10-23] MEDS: Mirtazapine 15 MG TAB PO SCH (21:50)
[2018-10-23] MEDS: diphenhydrAMINE 25 MG CAP PO SCH (21:50)
[2018-10-23] MEDS: Acetaminophen 500 MG TAB PO SCH (21:50)
[2018-10-23] MEDS: Atorvastatin Calcium 20 MG TAB PO SCH (21:50)
[2018-10-23] MEDS: Sulfameth/Trimethoprim DS 800-160mg TAB PO SCH (21:50)
[2018-10-23] MEDS: Gabapentin 100 MG CAP PO SCH (21:50)
[2018-10-23] MEDS: Enoxaparin Sodium 40 MG/0.4 ML SYRINGE SC SCH (21:51)
[2018-10-23] MEDS: Amlodipine 10 MG TAB PO SCH (21:51)
[2018-10-23] MEDS ORDERED: Phenazopyridine HCl 97.5 MG TABLET PO SCH (22:15)
[2018-10-24] MEDS: Levothyroxine Sodium 75 MCG TAB PO SCH (05:53)
[2018-10-24] MEDS: Phenazopyridine HCl 97.5 MG TABLET PO SCH ×3 (05:53→20:38)
[2018-10-24] MEDS: metFORMIN 500 MG TAB PO SCH ×2 (08:36→17:14)
[2018-10-24] MEDS: DULoxetine 30 MG CAP PO SCH (08:36)
[2018-10-24] MEDS: Potassium Chloride 20 MEQ TAB PO SCH (08:36)
[2018-10-24] MEDS: Saccharomyces boulardii 250 MG CAP PO SCH ×2 (08:36→20:37)
[2018-10-24] MEDS: Multivitamin W/ Minerals 1 TAB PO SCH (08:36)
[2018-10-24] MEDS: Sulfameth/Trimethoprim DS 800-160mg TAB PO SCH ×2 (08:37→20:38)
[2018-10-24] MEDS: Ramipril 5 MG CAP PO SCH (08:37)
[2018-10-24] MEDS: Aspirin 81 mg Enteric Coated Tablet PO SCH (08:37)
--- NOTE | 2018-10-24 09:46 | PRG ---
DATE OF SERVICE: 10/24/2018 SUBJECTIVE: The patient is a very pleasant 72-year-old white female, who had a colonoscopy by Dr. Beckham to donate fecal material for her recurrent C. diff. She had a stricture and unfortunately had a perforation. She was taken to surgical suite, where she had colon resection and colostomy. She was eventually stabilized and transferred to [facility] for PT and OT. She had a wound VAC, which has now been removed, and her drain has been removed. She is tolerating that very well. Recent CT revealed right-sided drainage catheter with almost complete drainage of the fluid collection on the right side as compared to prior exam. Interval reduction of the left side abscess collection also was found. The patient had a small density subhepatic collection along the dome of the liver, but otherwise stable. OBJECTIVE: VITAL SIGNS: Today revealed blood pressure 124/60, pulse 95, respirations 16, O2 saturation 96% on room air, and T-max 99.2. GENERAL: This is a well-developed, well-nourished, very pleasant, 72-year-old white female, in no apparent distress at this time. HEENT: Reveals normocephalic and nontraumatic cranium. Pupils are equally round and reactive. Extraocular movements are intact. Nose and throat are slightly dry. NECK: Supple without masses, nodes, or bruits. CHEST: Clear to auscultation. No rales, rhonchi, wheezes, or cough is heard. HEART: Reveals a regular rate and rhythm without murmurs, gallops, or rubs. ABDOMEN: Soft and nontender. Wound VAC is removed. No significant drainage is noted. : Deferred. EXTREMITIES: Revealed no clubbing, cyanosis, or edema. ASSESSMENT: 1. Intraabdominal abscess, status post colonic perforation with decrease abscesses that were drained. 2. Wound VAC is now removed. 3. Type 2 diabetes. 4. History of malnutrition, although the patient states her appetite is improving. 5. Generalized weakness with deconditioning. PLAN: 1. Continue present antibiotics. 2. Continue to monitor the patient for abdominal pain. 3. Monitor the patient's drainage. 4. Monitor the patient's colostomy. 5. Stress ulcer prophylaxis. 6. Decubitus precautions. 7. DVT prophylaxis per Primary Service. 8. Physical Therapy and Occupational Therapy. Job ID: [id number]
[2018-10-24] MEDS: HumaLOG 300 UNITS/3 ML VIAL SC PRN (17:15)
[2018-10-24] MEDS: Acetaminophen 500 MG TAB PO SCH (20:35)
[2018-10-24] MEDS: Enoxaparin Sodium 40 MG/0.4 ML SYRINGE SC SCH (20:36)
[2018-10-24] MEDS: Amlodipine 10 MG TAB PO SCH (20:36)
[2018-10-24] MEDS: diphenhydrAMINE 25 MG CAP PO SCH (20:36)
[2018-10-24] MEDS: Atorvastatin Calcium 20 MG TAB PO SCH (20:36)
[2018-10-24] MEDS: Gabapentin 100 MG CAP PO SCH (20:37)
[2018-10-24] MEDS: Mirtazapine 15 MG TAB PO SCH (20:37)
[2018-10-24] MEDS: Melatonin 3 MG TAB PO PRN (20:39)
[2018-10-24] MEDS: Simethicone Chewable 80 MG TAB PO PRN (20:39)
[2018-10-24] MEDS: clonazePAM 0.5 MG TAB PO PRN (20:39)
[2018-10-25] MEDS: Phenazopyridine HCl 97.5 MG TABLET PO SCH ×3 (05:26→21:03)
[2018-10-25] MEDS: Levothyroxine Sodium 75 MCG TAB PO SCH (05:26)
[2018-10-25] MEDS: metFORMIN 500 MG TAB PO SCH ×2 (08:00→16:56)
[2018-10-25] MEDS: Potassium Chloride 20 MEQ TAB PO SCH (08:00)
[2018-10-25] MEDS: DULoxetine 30 MG CAP PO SCH (08:01)
[2018-10-25] MEDS: Aspirin 81 mg Enteric Coated Tablet PO SCH (08:01)
[2018-10-25] MEDS: Multivitamin W/ Minerals 1 TAB PO SCH (08:01)
[2018-10-25] MEDS: Saccharomyces boulardii 250 MG CAP PO SCH ×2 (08:02→21:03)
[2018-10-25] MEDS: Sulfameth/Trimethoprim DS 800-160mg TAB PO SCH ×2 (08:02→21:03)
[2018-10-25] MEDS: Ramipril 5 MG CAP PO SCH (08:02)
--- NOTE | 2018-10-25 13:53 | PRG ---
DATE OF SERVICE: 10/25/2018 SUBJECTIVE: Ms. Schmitz is doing well. Her right-sided drain has been removed by Dr. Bustamante. Her abdominal incision is being just dressed with wet-to-dry dressing. The patient is learning how to do her dressing and her colostomy care. She has been discharged by Occupational Therapy, but she is still working with Physical Therapy. Her appetite has improved. No family at bedside. Discussed with nursing. OBJECTIVE: VITAL SIGNS: She is afebrile, heart rate 74, respirations 18, oxygen saturation 95% on room air, and blood pressure 109/57. CARDIOVASCULAR SYSTEM: S1 and S2 plus. RESPIRATORY SYSTEM: Normal vesicular breath sounds. ABDOMEN: Soft. Nontender. Bowel sounds heard in all quadrants. Abdominal incision with dressing. Colostomy site is healthy. CENTRAL NERVOUS SYSTEM: A, A, and O x3. Cranial nerves 2 through 12 intact. Generalized weakness. LABORATORY DATA: Urine culture shows Klebsiella. IMPRESSION: 1. Klebsiella urinary tract infection. 2. Intestinal perforation, requiring extensive surgery and placement of colostomy. 3. Intraabdominal abscess, requiring percutaneous drain. 4. Diabetes mellitus, type 2. 5. Hypertension. 6. Dyslipidemia. 7. Protein-calorie malnutrition, improving. PLAN: 1. Continue wound care. 2. Nutritional support. 3. Recheck BMP and CBC in the morning. 4. DVT and stress ulcer prophylaxis. 5. Decubitus precautions. 6. Physical Therapy. 7. Discharge planning. 8. Accu-Cheks with sliding scale coverage. Job ID: [id number]
[2018-10-25] MEDS: Amlodipine 10 MG TAB PO SCH (20:57)
[2018-10-25] MEDS: Acetaminophen 500 MG TAB PO SCH (20:57)
[2018-10-25] MEDS: Atorvastatin Calcium 20 MG TAB PO SCH (21:00)
[2018-10-25] MEDS: diphenhydrAMINE 25 MG CAP PO SCH (21:01)
[2018-10-25] MEDS: Enoxaparin Sodium 40 MG/0.4 ML SYRINGE SC SCH (21:01)
[2018-10-25] MEDS: Mirtazapine 15 MG TAB PO SCH (21:02)
[2018-10-25] MEDS: Gabapentin 100 MG CAP PO SCH (21:02)
[2018-10-25] MEDS: clonazePAM 0.5 MG TAB PO PRN (21:04)
[2018-10-25] MEDS: Melatonin 3 MG TAB PO PRN (21:05)
[2018-10-26 05:39] LABS: #Basophils 0.1 thou/uL (0.0-0.2); #Eosinphils 0.7 thou/uL (0.0-0.7); #Lymphocytes 2.2 thou/uL (1.20-3.40); #Monocytes 0.6 thou/uL (0.11-0.59); %Basophils 1.5 % (0.0-1.0); %Eosinophils 7.9 % (0.0-10.0); %Lymphocytes 25.4 % (21.0-51.0); %Monocytes 7.3 % (0.0-10.0); %Neutrophils 57.9 % (42.0-75.0); Hemoglobin 8.5 g/dL (12.0-16.0); Mean Corpuscular HGB CONC 31.2 g/dL (32.0-36.0); Mean Corpuscular Hemoglobin 27.9 pg (27.0-31.0); Mean Corpuscular Volume 89.3 fL (78.0-98.0); Mean Platelet Volume 5.9 fL (7.4-10.4); Platelet Count 491 thou/uL (130-400); RBC Distribution Width 15.2 % (11.5-14.5); Red Blood Cell (RBC) Count 3.05 mill/uL (4.20-5.40); White Blood Cell (WBC) Count 8.7 thou/uL (4.8-10.8)
[2018-10-26 05:53] LABS: Anion Gap 13 mmol/L (10-20); BUN (Urea Nitrogen) 11 mg/dL (9.8-20.1); Calc. Creatinine Clearance 65 mL/min (70-130); Calcium 8.9 mg/dL (7.8-10.44); Carbon Dioxide 24 mmol/L (23-31); Chloride 108 mmol/L (98-107); Estimated GFR-MDRD Greater than 90; Glucose 101 mg/dL (80-115); Potassium 4.1 mmol/L (3.5-5.1); Sodium 141 mmol/L (136-145)
[2018-10-26] MEDS: Phenazopyridine HCl 97.5 MG TABLET PO SCH ×2 (05:56→15:11)
[2018-10-26] MEDS: Levothyroxine Sodium 75 MCG TAB PO SCH (05:56)
[2018-10-26 07:28] VITALS: BP 102/52; TEMP 98.4
[2018-10-26] MEDS: metFORMIN 500 MG TAB PO SCH (08:04)
[2018-10-26] MEDS: Potassium Chloride 20 MEQ TAB PO SCH (08:04)
[2018-10-26] MEDS: Multivitamin W/ Minerals 1 TAB PO SCH (08:05)
[2018-10-26] MEDS: Ramipril 5 MG CAP PO SCH (08:05)
[2018-10-26] MEDS: DULoxetine 30 MG CAP PO SCH (08:05)
[2018-10-26] MEDS: Aspirin 81 mg Enteric Coated Tablet PO SCH (08:05)
[2018-10-26] MEDS: Saccharomyces boulardii 250 MG CAP PO SCH (08:06)
[2018-10-26] MEDS: Sulfameth/Trimethoprim DS 800-160mg TAB PO SCH (08:06)
[2018-10-26 11:02] VITALS: BMI 18.2
--- NOTE | 2018-10-26 14:35 | DIS ---
DATE OF ADMISSION: 10/01/2018 DATE OF DISCHARGE: 10/26/2018 PRINCIPAL DIAGNOSES: 1. Intestinal perforation, requiring extensive abdominal surgery, placement of colostomy, and wound care to abdominal incision. 2. Diabetes mellitus, type 2. 3. Hypertension. 4. Hypothyroidism. 5. Dyslipidemia. 6. History of recurrent Clostridium difficile. 7. Anxiety and depression. 8. Protein-calorie malnutrition, moderate to severe. 9. Intraabdominal abscess, requiring percutaneous drain placement. 10. Deconditioning. COMPLICATIONS: None. ADVERSE REACTIONS: None. PROCEDURES: CT scan of the abdomen and pelvis with p.o. and IV contrast. CONSULTATIONS: None, but she did go and see her surgeon, Dr. Bustamante, and his partner, Dr. Chamberlain, for followup. HOSPITAL COURSE: The patient was admitted on 10/01 after suffering an intestinal perforation while undergoing a fecal transplant for recurrent Clostridium difficile. She required significant surgery including resection of the colon and placement of colostomy. Her abdominal wound required wound VAC. She was sent here for nutritional support, wound care, and monitoring of her colostomy as well as therapy. While she was here, she started having more purulent drainage from the abdominal incision site. Her vital signs remained stable, but it also seemed that she has developed some tunneling of the wound, so after discussing with Dr. Chamberlain, who was covering for Dr. Bustamante, a CT of abdomen and pelvis with p.o. and IV contrast was obtained, and Dr. Chamberlain saw her in the office the day after. She recommended percutaneous drainage of the intraabdominal abscess and they were able to drain the right one, but unable to do the left one due to its proximity to the colostomy site. Her wound care was continued, and she continued to improve. Her drain has been removed. She continues to require some wound care, but her p.o. intake has also improved. Therapy bustillo, she was deemed stable for discharge home, and she is being discharged with home health. She will follow up with her primary care physician, Dr. Jefferson, in 3 to 5 days for her to manage her home health and Dr. Bustamante next to follow up on the abdominal abscess as well as the abdominal incision and colostomy. The patient was diagnosed with UTI, and she has been on Bactrim and I advised her to take it for a total of 7 days. I will send in 5 days of Bactrim to her [facility]. She states that she does not need any other prescriptions. PHYSICAL EXAMINATION: VITAL SIGNS: On the day of discharge, she is afebrile, heart rate is 72, respirations 16, oxygen saturation 95% on room air, and blood pressure 102/52. CARDIOVASCULAR SYSTEM: S1 and S2 plus. RESPIRATORY SYSTEM: Normal vesicular breath sounds. ABDOMEN: Soft and nontender. Bowel sounds heard in all quadrants. Abdominal incision with dressing. Colostomy site is healthy. EXTREMITIES: Without cyanosis or clubbing. Peripheral pulses are palpable. CENTRAL NERVOUS SYSTEM: AAO x3. Cranial nerves 2 through 12 intact. Generalized weakness, but improving. DISCHARGE MEDICATIONS: 1. Bactrim DS p.o. b.i.d. for 5 more days. 2. Tylenol 1000 mg q.6 p.r.n. 3. Amlodipine 10 mg at bedtime. 4. Aspirin 81 mg daily. 5. Atorvastatin 20 mg daily. 6. Citrucel tablet 500 mg p.o. at bedtime. 7. Duloxetine 30 mg daily. 8. Estradiol vaginal suppository 3 times a week. 9. Gabapentin 100 mg at bedtime. 10. Ibuprofen 600 mg q.6 p.r.n. Rest given, everything else I want her to discontinue. 1. Levoxyl 75 mcg daily. 2. Melatonin 3 mg at bedtime. 3. Metformin 500 mg b.i.d. 4. Multivitamin one tablet daily. 5. Urocit-K 20 mEq daily. 6. Altace 10 mg daily. 7. Florastor 250 mg b.i.d. 8. Senokot-S 1 tablet b.i.d. FOLLOWUP: As stated, she will follow up with her PCP in 3 to [address] Bustamante next week. LABORATORY DATA: Laboratory values done this morning shows a white count of 8.7, H and H are 8.5 and 27.2. Sodium 141, potassium 4.1, BUN and creatinine are 11 and 0.61. Blood sugars are 128, 169, 115, and 90. For full details, please see chart. Total time spent on this discharge is 35 minutes. No family at bedside. Discussed with nursing. Job ID: [id number]
[2018-10-26] MEDS: HYDROcodone/Acetaminophen 5/325 mg Tablet PO PRN (15:11)
== END 2018-10-26 15:45 | disposition home health service (06) | DRG 393 ==
LOC: NAV ACUTE 21:40
PROVIDERS: ADMIT Internal Medicine; ATTEND Internal Medicine
PROC: 30233N1 Transfusion of Nonautologous Red Blood Cells into Peripheral Vein, Percutaneous Approach (ICD-10-PCS; principal; 2018-10-08)
DX: K63.1 Perforation of intestine (nontraumatic) (principal); K65.9 Peritonitis, unspecified; E43 Unspecified severe protein-calorie malnutrition; Z68.1 Body mass index [BMI] 19.9 or less, adult; A04.72 Enterocolitis due to Clostridium difficile, not specified as recurrent; D62 Acute posthemorrhagic anemia; L02.211 Cutaneous abscess of abdominal wall; N39.0 Urinary tract infection, site not specified; E11.9 Type 2 diabetes mellitus without complications; E78.5 Hyperlipidemia, unspecified; I10 Essential (primary) hypertension; E03.9 Hypothyroidism, unspecified; F41.9 Anxiety disorder, unspecified; F32.9 Major depressive disorder, single episode, unspecified; R53.81 Other malaise; R53.1 Weakness; B96.1 Klebsiella pneumoniae [K. pneumoniae] as the cause of diseases classified elsewhere; K57.90 Diverticulosis of intestine, part unspecified, without perforation or abscess without bleeding; Z90.710 Acquired absence of both cervix and uterus; Z90.49 Acquired absence of other specified parts of digestive tract; Z88.8 Allergy status to other drugs, medicaments and biological substances
CPT/HCPCS: 36415; 36416; 36430; 74177; 80048; 80053; 81001; 85025; 86850; 86900; 86901; 87070; 87077; 87086; 87186; 87205; 87324; 87449; 97602; J1650; J2543; J3490; P9016; Q0163; Q9967